=== PATIENT | female | born 1975 | race Caucasian/White ===

== ENCOUNTER 2021-07-07 12:00 | Inpatient (IN) | payer OTHER ==
[2021-07-07] MEDS ORDERED: NICOTINE 10 MG CARTRIDGE (INHALER) IH PRN ×2 (13:17→13:24)
[2021-07-07] MEDS ORDERED: MAG HYDROX/AL HYDROX/SIMETH 30 ML UNIT-DOSE CUP PO PRN ×2 (13:17→13:24)
[2021-07-07] MEDS ORDERED: ACETAMINOPHEN 325 MG TABLET (FP) PO PRN ×2 (13:17→13:24)
[2021-07-07] MEDS ORDERED: BISMUTH SUBSALICYLATE 524 MG/30 ML PO PRN (13:17)
[2021-07-07] MEDS ORDERED: MENTHOL/PHENOL 1 EACH UD MM PRN (13:17)
[2021-07-07] MEDS ORDERED: MAGNESIUM HYDROX 2400MG/30ML ORAL SUSPENSION 30 ML CUP PO PRN ×2 (13:17→13:24)
[2021-07-07] MEDS ORDERED: MAGNESIUM CITRATE 300 ML BOTTLE PO PRN ×2 (13:17→13:24)
[2021-07-07] MEDS ORDERED: IBUPROFEN 400 MG TABLET (FP) PO PRN ×2 (13:17→13:24)
[2021-07-07] MEDS ORDERED: ONDANSETRON *ODT* 4 MG TABLET SL PRN (13:17)
[2021-07-07] MEDS ORDERED: P-EPHED 60MG/TRIPROLIDI 2.5MG TABLET PO PRN (13:24)
[2021-07-07] MEDS ORDERED: LOPERAMIDE HCL 2 MG CAPSULE PO PRN (13:24)
[2021-07-07] MEDS ORDERED: guaiFENesin 200 MG/10 ML 10 ML UNIT-DOSE CUPS PO PRN (13:24)
[2021-07-07] MEDS ORDERED: hydrOXYzine PAMOATE 25 MG CAPSULE (FP) PO SCH (14:00)
[2021-07-07] MEDS ORDERED: ALBUTEROL SO4 2.5/IPRATROPIUM 0.5 INH SOL 3 ML VIAL.NEB. NEB ONE ×2 (14:00→14:09)
[2021-07-07] MEDS ORDERED: ALBUTEROL SO4 HFA INHALER IH ONE (14:13)
[2021-07-07 15:44] VITALS: BMI 61.9
[2021-07-07] MEDS ORDERED: MELATONIN 5 MG TABLETS PO SCH ×2 (22:00)
[2021-07-07] MEDS ORDERED: THIAMINE HCL 100 MG TABLET (FP) PO SCH (22:00)
[2021-07-07] MEDS: THIAMINE HCL 100 MG TABLET (FP) PO SCH (22:21)
[2021-07-07] MEDS: hydrOXYzine PAMOATE 25 MG CAPSULE (FP) PO SCH ×3 (22:22→22:46)
[2021-07-08] MEDS: hydrOXYzine PAMOATE 25 MG CAPSULE (FP) PO SCH ×5 (01:18→17:12)
[2021-07-08] MEDS ORDERED: PRENATAL VITAMINS W/ FOLIC ACID TABLET (FP) PO SCH (10:00)
[2021-07-08 10:11] LABS: HEMATOCRIT 35.6 % (32.4-45.2); HEMOGLOBIN 11.3 GM/dL (10.7-15.3); MCH 25.9 pg (25.7-33.7); MCHC 31.8 g/dl (32.0-36.0); MEAN CELL VOLUME 81.4 fl (80-96); MEAN PLT VOLUME 8.8 fl (7.5-11.1); PLATELET COUNT 259 10^3/uL (134-434); RBC 4.38 M/mm3 (3.60-5.2); RDW 13.9 % (11.6-15.6); WHITE BLOOD COUNT 8.2 K/mm3 (4.0-10.0)
[2021-07-08 10:12] LABS: ALBUMIN 3.3 g/dl (3.4-5.0); BLOOD UREA NITROGEN 20.2 mg/dL (7-18)
[2021-07-08 10:18] LABS: BILIRUBIN,TOTAL 0.6 mg/dL (0.2-1); TOT PROT 6.5 g/dl (6.4-8.2)
[2021-07-08] MEDS: PRENATAL VITAMINS W/ FOLIC ACID TABLET (FP) PO SCH (10:56)
[2021-07-08] MEDS: NICOTINE 7 MG/24 HOURS TOPICAL PATCH TD SCH (10:56)
[2021-07-08] MEDS: ALBUTEROL SO4 HFA INHALER IH PRN ×2 (10:58→19:06)
[2021-07-08] MEDS ORDERED: SENNOSIDES 8.6MG TABLET (FP) PO PRN (11:53)
[2021-07-08] MEDS ORDERED: LEVOTHYROXINE NA 200 MCG TABLET PO SCH (12:00)
[2021-07-08] MEDS: HYDROCHLOROTHIAZIDE 25 MG TABLET (FP) PO SCH (13:43)
[2021-07-08] MEDS: metFORMIN HCL 500 MG TABLET (FP) PO SCH ×2 (13:43→17:06)
[2021-07-08] MEDS: MONTELUKAST NA 10 MG TABLET PO SCH (13:43)
[2021-07-08] MEDS: NAPROXEN 500 MG TABLET PO SCH ×2 (13:43→21:35)
[2021-07-08] MEDS: PANTOPRAZOLE 40 MG TABLET PO SCH (13:43)
[2021-07-08] MEDS: LEVOTHYROXINE NA 100 MCG TABLET (FP) PO SCH (13:44)
[2021-07-08] MEDS: NIFEdipine E.R. 90 MG TABLET PO SCH (13:44)
[2021-07-08] MEDS: ACETAMINOPHEN 325 MG TABLET (FP) PO PRN (17:13)
[2021-07-08] MEDS: TIOTROPIUM BROMIDE 2.5 MCG (SPIRIVA) RESPIMAT INHALER IH SCH (17:49)
[2021-07-08] MEDS: MAG HYDROX/ALH/SMC/DPHA/LIDO 240 ML MOUTHWASH MM SCH ×2 (21:33→23:05)
[2021-07-08] MEDS: THIAMINE HCL 100 MG TABLET (FP) PO SCH (21:35)
[2021-07-08] MEDS: busPIRone HCL 10 MG TABLET (FP) PO SCH (21:35)
[2021-07-08] MEDS: MELATONIN 5 MG TABLETS PO SCH (21:36)
[2021-07-09] MEDS: ACETAMINOPHEN 325 MG TABLET (FP) PO PRN ×2 (01:01→16:42)
[2021-07-09] MEDS: ALBUTEROL SO4 HFA INHALER IH PRN ×3 (06:39→21:21)
[2021-07-09] MEDS: hydrOXYzine PAMOATE 25 MG CAPSULE (FP) PO PRN ×2 (06:45→16:43)
[2021-07-09] MEDS: metFORMIN HCL 500 MG TABLET (FP) PO SCH ×2 (06:46→16:42)
[2021-07-09] MEDS: MAG HYDROX/ALH/SMC/DPHA/LIDO 240 ML MOUTHWASH MM SCH ×3 (08:23→23:15)
[2021-07-09] MEDS: LEVOTHYROXINE NA 100 MCG TABLET (FP) PO SCH (08:27)
[2021-07-09] MEDS: busPIRone HCL 10 MG TABLET (FP) PO SCH ×2 (10:02→21:22)
[2021-07-09] MEDS: NAPROXEN 500 MG TABLET PO SCH ×2 (10:02→21:22)
[2021-07-09] MEDS: MONTELUKAST NA 10 MG TABLET PO SCH (10:02)
[2021-07-09] MEDS: PANTOPRAZOLE 40 MG TABLET PO SCH (10:02)
[2021-07-09] MEDS: PRENATAL VITAMINS W/ FOLIC ACID TABLET (FP) PO SCH (10:02)
[2021-07-09] MEDS: HYDROCHLOROTHIAZIDE 25 MG TABLET (FP) PO SCH (10:03)
[2021-07-09] MEDS: NICOTINE 7 MG/24 HOURS TOPICAL PATCH TD SCH (10:04)
[2021-07-09] MEDS: NIFEdipine E.R. 90 MG TABLET PO SCH (10:04)
[2021-07-09] MEDS: TIOTROPIUM BROMIDE 2.5 MCG (SPIRIVA) RESPIMAT INHALER IH SCH (10:05)
[2021-07-09] MEDS: FAMOTIDINE 20 MG TABLET PO SCH (14:56)
[2021-07-09] MEDS: METHOCARBAMOL 500 MG TABLET PO PRN (17:27)
[2021-07-09] MEDS: THIAMINE HCL 100 MG TABLET (FP) PO SCH (21:22)
[2021-07-09] MEDS: MELATONIN 5 MG TABLETS PO SCH (21:22)
[2021-07-10] MEDS: MAG HYDROX/ALH/SMC/DPHA/LIDO 240 ML MOUTHWASH MM SCH ×4 (00:24→18:16)
[2021-07-10] MEDS: hydrOXYzine PAMOATE 25 MG CAPSULE (FP) PO PRN ×2 (01:48→09:08)
[2021-07-10] MEDS: ALBUTEROL SO4 HFA INHALER IH PRN ×2 (01:51→12:58)
[2021-07-10] MEDS: metFORMIN HCL 500 MG TABLET (FP) PO SCH ×2 (06:37→18:13)
[2021-07-10] MEDS: LEVOTHYROXINE NA 100 MCG TABLET (FP) PO SCH (06:37)
[2021-07-10] MEDS: PRENATAL VITAMINS W/ FOLIC ACID TABLET (FP) PO SCH (09:06)
[2021-07-10] MEDS: HYDROCHLOROTHIAZIDE 25 MG TABLET (FP) PO SCH (09:06)
[2021-07-10] MEDS: METHOCARBAMOL 500 MG TABLET PO PRN (09:06)
[2021-07-10] MEDS: NAPROXEN 500 MG TABLET PO SCH ×2 (09:06→22:35)
[2021-07-10] MEDS: NIFEdipine E.R. 90 MG TABLET PO SCH (09:06)
[2021-07-10] MEDS: busPIRone HCL 10 MG TABLET (FP) PO SCH ×2 (09:06→22:35)
[2021-07-10] MEDS: PANTOPRAZOLE 40 MG TABLET PO SCH (09:06)
[2021-07-10] MEDS: MONTELUKAST NA 10 MG TABLET PO SCH (09:06)
[2021-07-10] MEDS: NICOTINE 7 MG/24 HOURS TOPICAL PATCH TD SCH (09:07)
[2021-07-10] MEDS: TIOTROPIUM BROMIDE 2.5 MCG (SPIRIVA) RESPIMAT INHALER IH SCH (09:07)
[2021-07-10 12:17] VITALS: TEMP 97.3
[2021-07-10] MEDS: FAMOTIDINE 20 MG TABLET PO SCH (13:34)
[2021-07-10 15:10] VITALS: BP 125/74; PULSE 82
[2021-07-10] MEDS: MELATONIN 5 MG TABLETS PO SCH (22:35)
[2021-07-10] MEDS: THIAMINE HCL 100 MG TABLET (FP) PO SCH (22:36)
[2021-07-11] MEDS: metFORMIN HCL 500 MG TABLET (FP) PO SCH (06:39)
[2021-07-11] MEDS: MAG HYDROX/ALH/SMC/DPHA/LIDO 240 ML MOUTHWASH MM SCH ×2 (06:39→07:56)
[2021-07-11] MEDS: LEVOTHYROXINE NA 100 MCG TABLET (FP) PO SCH (07:56)
== END 2021-07-11 08:00 | disposition short-term general hospital (02) | DRG 895 ==
LOC: YASAS 12:00 → Y5N 19:39
PROVIDERS: ADMIT Allergy & Immunology; ATTEND Allergy & Immunology
PROC: HZ42ZZZ Group Counseling for Substance Abuse Treatment, Cognitive-Behavioral (ICD-10-PCS; principal; 2021-07-07)
DX: F14.20 Cocaine dependence, uncomplicated (principal); F11.20 Opioid dependence, uncomplicated; F19.282 Other psychoactive substance dependence with psychoactive substance-induced sleep disorder; F19.280 Other psychoactive substance dependence with psychoactive substance-induced anxiety disorder; J44.1 Chronic obstructive pulmonary disease with (acute) exacerbation; Z68.44 Body mass index [BMI] 60.0-69.9, adult; F19.24 Other psychoactive substance dependence with psychoactive substance-induced mood disorder; I10 Essential (primary) hypertension; E11.9 Type 2 diabetes mellitus without complications; E03.9 Hypothyroidism, unspecified; R60.0 Localized edema; E66.01 Morbid (severe) obesity due to excess calories; Z62.810 Personal history of physical and sexual abuse in childhood; Z56.0 Unemployment, unspecified; Z59.00 Homelessness unspecified
CPT/HCPCS: 36415; 80053; 81025; 82962; 84443; 85027; 86780; 86803; C9803; U0003; U0005

== ENCOUNTER 2021-07-10 14:25 | Inpatient (IN) | payer OTHER ==
[2021-07-10] MEDS ORDERED: ALBUTEROL SO4 2.5/IPRATROPIUM 0.5 INH SOL 3 ML VIAL.NEB. NEB SCH (16:15)
[2021-07-10] MEDS ORDERED: ALBUTEROL SO4 2.5/IPRATROPIUM 0.5 INH SOL 3 ML VIAL.NEB. NEB ONE (16:25)
[2021-07-10] MEDS ORDERED: ALBUTEROL SO4 HFA INHALER IH ONE ×2 (16:53→17:17)
[2021-07-10 17:05] LABS: BASO % 1.5 % (0-2.0); EOS % 8.6 % (0-4.5); HEMATOCRIT 37.8 % (32.4-45.2); HEMOGLOBIN 11.5 GM/dL (10.7-15.3); MCH 24.8 pg (25.7-33.7); MCHC 30.5 g/dl (32.0-36.0); MEAN CELL VOLUME 81.5 fl (80-96); MEAN PLT VOLUME 8.8 fl (7.5-11.1); MONO % 8.2 % (3.8-10.2); NEUT % 60.7 % (42.8-82.8); PLATELET COUNT 279 10^3/uL (134-434); RBC 4.64 M/mm3 (3.60-5.2); WHITE BLOOD COUNT 8.1 K/mm3 (4.0-10.0)
[2021-07-10 17:24] LABS: CHLORIDE 102 mmol/L (98-107); SODIUM 140 mmol/L (136-145)
[2021-07-10 17:27] LABS: ALBUMIN 3.4 g/dl (3.4-5.0); ANION GAP 8 MMOL/L (8-16); BLOOD UREA NITROGEN 16.2 mg/dL (7-18); CO2 31 mmol/L (21-32); GLUCOSE,RANDOM 127 mg/dL (74-106); MAGNESIUM 2.5 mg/dL (1.8-2.4)
[2021-07-10 17:30] LABS: CREATININE 0.9 mg/dL (0.55-1.3); SGOT/AST 18 U/L (15-37); SGPT/ALT 26 U/L (13-61)
[2021-07-10 17:31] LABS: BILIRUBIN,TOTAL 0.2 mg/dL (0.2-1); TOT PROT 6.7 g/dl (6.4-8.2)
[2021-07-10 17:33] LABS: ALK PHOS 95 U/L (45-117)
[2021-07-10 17:35] LABS: N-TERMINAL BNP 110.5 pg/ml (5-125)
[2021-07-10] MEDS ORDERED: ACETAMINOPHEN 1000 MG/100 ML BAG IVPB ONE (23:39)
[2021-07-10 23:54] LABS: URINE APPEARANCE CLEAR; URINE BILIRUBIN NEGATIVE (NEGATIVE); URINE COLOR YELLOW; URINE GLUCOSE (UA) NEGATIVE (NEGATIVE); URINE KETONE NEGATIVE (NEGATIVE); URINE LEUK ESTERASE NEGATIVE (NEGATIVE); URINE NITRITE NEGATIVE (NEGATIVE); URINE PROTEIN NEGATIVE (NEGATIVE); URINE UROBILINOGEN 0.2 mg/dL (0.2-1.0)
[2021-07-11] MEDS ORDERED: ACETAMINOPHEN INJECTION 100 ML IVPB ONE (00:14)
[2021-07-11 01:51] LABS: HIV INTERPRETATION NEGATIVE (NEGATIVE)
[2021-07-11] MEDS ORDERED: ACETAMINOPHEN 1000 MG/100 ML BAG IVPB PRN ×2 (02:02→16:44)
[2021-07-11] MEDS ORDERED: diazePAM 2 MG TABLET PO ONE (04:19)
[2021-07-11] MEDS ORDERED: MAG HYDROX/ALH/SMC/DPHA/LIDO 240 ML MOUTHWASH MM SCH (06:00)
[2021-07-11] MEDS: MAG HYDROX/ALH/SMC/DPHA/LIDO 240 ML MOUTHWASH MM SCH ×3 (06:44→17:48)
[2021-07-11] MEDS: INSULIN SLIDING SCALE (NOVOLOG) 1 VIAL SQ SCH ×4 (06:45→22:10)
[2021-07-11] MEDS: LEVOTHYROXINE NA 200 MCG TABLET PO SCH (06:46)
[2021-07-11 07:34] LABS: BASO % 1.4 % (0-2.0); EOS % 7.7 % (0-4.5); HEMATOCRIT 34.9 % (32.4-45.2); LYMPH % 19.7 % (8-40); MCH 25.2 pg (25.7-33.7); MCHC 31.5 g/dl (32.0-36.0); MEAN CELL VOLUME 79.9 fl (80-96); MEAN PLT VOLUME 8.6 fl (7.5-11.1); MONO % 6.2 % (3.8-10.2); PLATELET COUNT 244 10^3/uL (134-434); RBC 4.37 M/mm3 (3.60-5.2); RDW 14.2 % (11.6-15.6); WHITE BLOOD COUNT 6.6 K/mm3 (4.0-10.0)
[2021-07-11 07:44] LABS: BLOOD UREA NITROGEN 13.9 mg/dL (7-18); CALCIUM 8.9 mg/dL (8.5-10.1); MAGNESIUM 2.4 mg/dL (1.8-2.4)
[2021-07-11 07:47] LABS: CREATININE 0.8 mg/dL (0.55-1.3)
[2021-07-11 07:49] LABS: BILIRUBIN,TOTAL 0.3 mg/dL (0.2-1); TOT PROT 6.4 g/dl (6.4-8.2)
[2021-07-11] MEDS: NAPROXEN 500 MG TABLET PO SCH ×2 (07:50→09:38)
[2021-07-11] MEDS: LEVALBUTEROL HCL 0.31 MG/3 ML VIAL.NEB IH PRN ×2 (07:55→16:05)
[2021-07-11] MEDS: THIAMINE HCL 200 MG/2 ML VIAL IVPB SCH (09:36)
[2021-07-11] MEDS: methylPREDNISolone NA SUCC 40 MG/1 ML VIAL IVPUSH SCH (09:37)
[2021-07-11] MEDS: FOLIC ACID 1 MG TABLET (FP) PO SCH (09:37)
[2021-07-11] MEDS: ENOXAPARIN NA (PORCINE) 40 MG/0.4 ML DISP.SYRIN SQ SCH ×2 (09:37→21:51)
[2021-07-11] MEDS: CYANOCOBALAMIN (VITAMIN B-12) 100 MCG TABLET PO SCH (09:38)
[2021-07-11] MEDS: amLODIPine BESYLATE 5 MG TABLET (FP) PO SCH (17:41)
[2021-07-11] MEDS: NYSTATIN 500,000 UNITS/5 ML SUSPENSION PO SCH ×2 (17:49→23:27)
[2021-07-11] MEDS ORDERED: diphenhydrAMINE HCL 25 MG CAPSULE (FP) PO PRN (21:00)
[2021-07-11] MEDS ORDERED: MELATONIN 5 MG TABLETS PO PRN (23:19)
[2021-07-12] MEDS ORDERED: hydrOXYzine HCL 10 MG/5 ML LIQUID BULK BOTTLE PO ONE (00:28)
[2021-07-12] MEDS ORDERED: amLODIPine BESYLATE 5 MG TABLET (FP) PO ONE (00:56)
[2021-07-12] MEDS: MAG HYDROX/ALH/SMC/DPHA/LIDO 240 ML MOUTHWASH MM SCH ×4 (01:17→18:22)
[2021-07-12] MEDS: busPIRone HCL 10 MG TABLET (FP) PO SCH ×3 (05:41→22:35)
[2021-07-12] MEDS: LEVOTHYROXINE NA 200 MCG TABLET PO SCH (06:09)
[2021-07-12] MEDS: NYSTATIN 500,000 UNITS/5 ML SUSPENSION PO SCH ×3 (06:09→18:22)
[2021-07-12] MEDS: INSULIN SLIDING SCALE (NOVOLOG) 1 VIAL SQ SCH ×4 (06:10→22:36)
[2021-07-12 08:41] LABS: HEMATOCRIT 35.2 % (32.4-45.2); HEMOGLOBIN 11.1 GM/dL (10.7-15.3); MCH 25.4 pg (25.7-33.7); MCHC 31.6 g/dl (32.0-36.0); MEAN CELL VOLUME 80.4 fl (80-96); MEAN PLT VOLUME 8.7 fl (7.5-11.1); PLATELET COUNT 255 10^3/uL (134-434); RBC 4.38 M/mm3 (3.60-5.2); RDW 14.1 % (11.6-15.6); WHITE BLOOD COUNT 7.1 K/mm3 (4.0-10.0)
[2021-07-12 09:10] LABS: ALBUMIN 3.3 g/dl (3.4-5.0); CALCIUM 9.1 mg/dL (8.5-10.1)
[2021-07-12 09:11] LABS: BLOOD UREA NITROGEN 16.5 mg/dL (7-18); MAGNESIUM 2.9 mg/dL (1.8-2.4)
[2021-07-12 09:13] LABS: CREATININE 0.9 mg/dL (0.55-1.3)
[2021-07-12 09:15] LABS: BILIRUBIN,TOTAL 0.6 mg/dL (0.2-1); TOT PROT 6.6 g/dl (6.4-8.2)
[2021-07-12] MEDS ORDERED: hydrOXYzine PAMOATE 50 MG CAPSULE (FP) PO PRN (09:35)
[2021-07-12] MEDS ORDERED: SODIUM CHLORIDE FOR INHALATION 3 ML VIAL.NEB IH PRN (09:45)
[2021-07-12] MEDS ORDERED: ACETAMINOPHEN 325 MG TABLET (FP) PO PRN ×2 (09:47→09:57)
[2021-07-12] MEDS: amLODIPine BESYLATE 5 MG TABLET (FP) PO SCH (10:44)
[2021-07-12] MEDS: FOLIC ACID 1 MG TABLET (FP) PO SCH (10:45)
[2021-07-12] MEDS: NIFEdipine E.R 60 MG TABLET PO SCH (10:45)
[2021-07-12] MEDS: CYANOCOBALAMIN (VITAMIN B-12) 100 MCG TABLET PO SCH (10:46)
[2021-07-12] MEDS: ENOXAPARIN NA (PORCINE) 40 MG/0.4 ML DISP.SYRIN SQ SCH ×2 (10:46→22:34)
[2021-07-12] MEDS: methylPREDNISolone NA SUCC 40 MG/1 ML VIAL IVPUSH SCH (10:47)
[2021-07-12] MEDS: THIAMINE HCL 200 MG/2 ML VIAL IVPB SCH (10:51)
[2021-07-12] MEDS ORDERED: SENNOSIDES 8.6MG TABLET (FP) PO PRN (13:54)
[2021-07-12] MEDS ORDERED: hydrOXYzine PAMOATE 25 MG CAPSULE (FP) PO ONE (15:14)
[2021-07-12] MEDS: hydrOXYzine PAMOATE 25 MG CAPSULE (FP) PO PRN (15:33)
[2021-07-12] MEDS: ACETAMINOPHEN 325 MG TABLET (FP) PO PRN ×2 (15:33→22:40)
[2021-07-12] MEDS ORDERED: PT OWN MED DRAWER 7, Y5N ONE (22:28)
[2021-07-12] MEDS: MELATONIN 5 MG TABLETS PO PRN (22:34)
[2021-07-12] MEDS: MONTELUKAST NA 10 MG TABLET PO SCH (22:35)
[2021-07-12] MEDS: DOCUSATE SODIUM 100 MG CAPSULE (FP) PO SCH (22:36)
[2021-07-12] MEDS: BUDESONIDE/FORMETEROL FUMARATE 160/4.5 mcg INHALER IH SCH (22:45)
[2021-07-13] MEDS: hydrOXYzine PAMOATE 25 MG CAPSULE (FP) PO PRN ×3 (00:19→17:38)
[2021-07-13] MEDS: NYSTATIN 500,000 UNITS/5 ML SUSPENSION PO SCH ×4 (02:14→17:44)
[2021-07-13] MEDS: MAG HYDROX/ALH/SMC/DPHA/LIDO 240 ML MOUTHWASH MM SCH ×4 (02:14→17:44)
[2021-07-13] MEDS ORDERED: DICLOFENAC SODIUM 25 MG TABLET.DR PO ONE (02:30)
[2021-07-13] MEDS: LEVALBUTEROL HCL 0.31 MG/3 ML VIAL.NEB IH PRN ×2 (05:52→21:38)
[2021-07-13] MEDS: LEVOTHYROXINE NA 200 MCG TABLET PO SCH (07:17)
[2021-07-13] MEDS: INSULIN SLIDING SCALE (NOVOLOG) 1 VIAL SQ SCH ×4 (07:17→22:18)
[2021-07-13] MEDS ORDERED: PT OWN MED DRAWER 7, Y5N ONE ×3 (07:21→17:37)
[2021-07-13] MEDS: ACETAMINOPHEN 325 MG TABLET (FP) PO PRN ×2 (08:31→14:38)
[2021-07-13] MEDS ORDERED: predniSONE 20 MG TABLET (UD) PO SCH (10:00)
[2021-07-13] MEDS: HYDROCHLOROTHIAZIDE 25 MG TABLET (FP) PO SCH (11:04)
[2021-07-13] MEDS: CYANOCOBALAMIN (VITAMIN B-12) 100 MCG TABLET PO SCH (11:04)
[2021-07-13] MEDS: busPIRone HCL 10 MG TABLET (FP) PO SCH ×2 (11:04→22:12)
[2021-07-13] MEDS: BUDESONIDE/FORMETEROL FUMARATE 160/4.5 mcg INHALER IH SCH ×2 (11:04→22:12)
[2021-07-13] MEDS: TIOTROPIUM BROMIDE 2.5 MCG (SPIRIVA) RESPIMAT INHALER IH SCH (11:05)
[2021-07-13] MEDS: DOCUSATE SODIUM 100 MG CAPSULE (FP) PO SCH ×2 (11:05→22:12)
[2021-07-13] MEDS: ENOXAPARIN NA (PORCINE) 40 MG/0.4 ML DISP.SYRIN SQ SCH ×2 (11:05→22:12)
[2021-07-13] MEDS: CHOLECALCIFEROL (VIT D3) 1,000 UNIT (25 MCG) TABLET PO SCH (11:05)
[2021-07-13] MEDS: PANTOPRAZOLE 40 MG TABLET PO SCH (11:05)
[2021-07-13] MEDS: FOLIC ACID 1 MG TABLET (FP) PO SCH (11:05)
[2021-07-13] MEDS: THIAMINE HCL 200 MG/2 ML VIAL IVPB SCH (11:06)
[2021-07-13] MEDS: NIFEdipine E.R 60 MG TABLET PO SCH (11:06)
[2021-07-13] MEDS ORDERED: INSULIN (NOVOLOG) ASPART 100 UNITS/ML 10ML VIAL ONE (17:53)
[2021-07-13] MEDS: MONTELUKAST NA 10 MG TABLET PO SCH (22:12)
[2021-07-13] MEDS: MELATONIN 5 MG TABLETS PO PRN (22:12)
[2021-07-14] MEDS: MAG HYDROX/ALH/SMC/DPHA/LIDO 240 ML MOUTHWASH MM SCH ×5 (00:27→23:20)
[2021-07-14] MEDS: NYSTATIN 500,000 UNITS/5 ML SUSPENSION PO SCH ×5 (00:27→23:21)
[2021-07-14] MEDS: SODIUM CHLORIDE NASAL SPRAY 44 ML BOTTLE NS PRN ×2 (02:24→17:36)
[2021-07-14] MEDS: ACETAMINOPHEN 325 MG TABLET (FP) PO PRN (05:18)
[2021-07-14] MEDS: LEVOTHYROXINE NA 200 MCG TABLET PO SCH (06:27)
[2021-07-14] MEDS: INSULIN SLIDING SCALE (NOVOLOG) 1 VIAL SQ SCH ×4 (06:32→23:05)
[2021-07-14 07:34] VITALS: BMI 63.9
[2021-07-14] MEDS ORDERED: predniSONE 20 MG TABLET (UD) PO SCH (07:44)
[2021-07-14] MEDS: CHOLECALCIFEROL (VIT D3) 1,000 UNIT (25 MCG) TABLET PO SCH (09:20)
[2021-07-14] MEDS: PANTOPRAZOLE 40 MG TABLET PO SCH (09:20)
[2021-07-14] MEDS: HYDROCHLOROTHIAZIDE 25 MG TABLET (FP) PO SCH (09:20)
[2021-07-14] MEDS: ENOXAPARIN NA (PORCINE) 40 MG/0.4 ML DISP.SYRIN SQ SCH ×2 (09:20→23:03)
[2021-07-14] MEDS: FOLIC ACID 1 MG TABLET (FP) PO SCH (09:21)
[2021-07-14] MEDS: busPIRone HCL 10 MG TABLET (FP) PO SCH ×2 (09:21→23:04)
[2021-07-14] MEDS: DOCUSATE SODIUM 100 MG CAPSULE (FP) PO SCH ×2 (09:21→23:06)
[2021-07-14] MEDS: NIFEdipine E.R 60 MG TABLET PO SCH (09:22)
[2021-07-14] MEDS: THIAMINE HCL 200 MG/2 ML VIAL IVPB SCH (09:22)
[2021-07-14] MEDS: CYANOCOBALAMIN (VITAMIN B-12) 100 MCG TABLET PO SCH (09:22)
[2021-07-14] MEDS: BUDESONIDE/FORMETEROL FUMARATE 160/4.5 mcg INHALER IH SCH ×2 (09:23→23:20)
[2021-07-14] MEDS: TIOTROPIUM BROMIDE 2.5 MCG (SPIRIVA) RESPIMAT INHALER IH SCH (09:23)
[2021-07-14] MEDS ORDERED: predniSONE 20 MG TABLET (UD) ONE (09:42)
[2021-07-14] MEDS ORDERED: predniSONE 10 MG TABLET (UD) ONE (09:42)
[2021-07-14] MEDS: hydrOXYzine PAMOATE 25 MG CAPSULE (FP) PO PRN ×2 (09:43→23:21)
[2021-07-14 09:51] LABS: HEMATOCRIT 35.1 % (32.4-45.2); HEMOGLOBIN 10.9 GM/dL (10.7-15.3); MEAN CELL VOLUME 80.6 fl (80-96); MEAN PLT VOLUME 8.7 fl (7.5-11.1); PLATELET COUNT 272 10^3/uL (134-434); RBC 4.35 M/mm3 (3.60-5.2); RDW 13.9 % (11.6-15.6); WHITE BLOOD COUNT 8.2 K/mm3 (4.0-10.0)
[2021-07-14] MEDS ORDERED: predniSONE 20 MG, predniSONE 10 MG PO ONE (10:00)
[2021-07-14 10:18] LABS: ALBUMIN 3.2 g/dl (3.4-5.0)
[2021-07-14 10:20] LABS: BLOOD UREA NITROGEN 18.7 mg/dL (7-18)
[2021-07-14 10:21] LABS: CREATININE 0.9 mg/dL (0.55-1.3)
[2021-07-14 10:22] LABS: BILIRUBIN,TOTAL 0.3 mg/dL (0.2-1); TOT PROT 6.7 g/dl (6.4-8.2)
[2021-07-14] MEDS: LEVALBUTEROL HCL 0.31 MG/3 ML VIAL.NEB IH PRN (11:50)
[2021-07-14] MEDS: ACETAMINOPHEN 1000 MG/100 ML BAG IVPB PRN ×2 (13:13→23:02)
[2021-07-14] MEDS: MAGNESIUM HYDROX 2400MG/30ML ORAL SUSPENSION 30 ML CUP PO PRN (14:37)
[2021-07-14] MEDS: MONTELUKAST NA 10 MG TABLET PO SCH (23:04)
[2021-07-14] MEDS: MELATONIN 5 MG TABLETS PO PRN (23:21)
[2021-07-15] MEDS: LEVALBUTEROL HCL 0.31 MG/3 ML VIAL.NEB IH PRN (03:15)
[2021-07-15] MEDS: NYSTATIN 500,000 UNITS/5 ML SUSPENSION PO SCH ×3 (07:29→18:19)
[2021-07-15] MEDS: MAG HYDROX/ALH/SMC/DPHA/LIDO 240 ML MOUTHWASH MM SCH ×3 (07:29→18:20)
[2021-07-15] MEDS: LEVOTHYROXINE NA 200 MCG TABLET PO SCH (07:30)
[2021-07-15] MEDS: ACETAMINOPHEN 325 MG TABLET (FP) PO PRN (07:30)
[2021-07-15] MEDS: INSULIN SLIDING SCALE (NOVOLOG) 1 VIAL SQ SCH ×4 (07:32→22:14)
[2021-07-15] MEDS ORDERED: PT OWN MED DRAWER 7, Y5N ONE ×3 (08:59→18:18)
[2021-07-15] MEDS: DOCUSATE SODIUM 100 MG CAPSULE (FP) PO SCH ×2 (09:03→22:08)
[2021-07-15] MEDS: CHOLECALCIFEROL (VIT D3) 1,000 UNIT (25 MCG) TABLET PO SCH (09:03)
[2021-07-15] MEDS: THIAMINE HCL 200 MG/2 ML VIAL IVPB SCH (09:03)
[2021-07-15] MEDS: busPIRone HCL 10 MG TABLET (FP) PO SCH ×2 (09:03→22:08)
[2021-07-15] MEDS: PANTOPRAZOLE 40 MG TABLET PO SCH (09:04)
[2021-07-15] MEDS: HYDROCHLOROTHIAZIDE 25 MG TABLET (FP) PO SCH (09:04)
[2021-07-15] MEDS: NIFEdipine E.R 60 MG TABLET PO SCH (09:04)
[2021-07-15] MEDS: ENOXAPARIN NA (PORCINE) 40 MG/0.4 ML DISP.SYRIN SQ SCH ×2 (09:04→22:08)
[2021-07-15] MEDS: FOLIC ACID 1 MG TABLET (FP) PO SCH (09:04)
[2021-07-15] MEDS: BUDESONIDE/FORMETEROL FUMARATE 160/4.5 mcg INHALER IH SCH ×2 (09:05→22:17)
[2021-07-15] MEDS: CYANOCOBALAMIN (VITAMIN B-12) 100 MCG TABLET PO SCH (09:05)
[2021-07-15] MEDS: TIOTROPIUM BROMIDE 2.5 MCG (SPIRIVA) RESPIMAT INHALER IH SCH (09:05)
[2021-07-15] MEDS: MAGNESIUM HYDROX 2400MG/30ML ORAL SUSPENSION 30 ML CUP PO PRN (09:39)
[2021-07-15] MEDS: hydrOXYzine PAMOATE 25 MG CAPSULE (FP) PO PRN ×2 (09:39→18:32)
[2021-07-15] MEDS ORDERED: predniSONE 20 MG TABLET (UD) PO ONE (10:00)
[2021-07-15 10:33] LABS: HEMATOCRIT 36.9 % (32.4-45.2); HEMOGLOBIN 11.4 GM/dL (10.7-15.3); MCH 25.1 pg (25.7-33.7); MEAN PLT VOLUME 8.8 fl (7.5-11.1); PLATELET COUNT 298 10^3/uL (134-434); RBC 4.55 M/mm3 (3.60-5.2); RDW 13.9 % (11.6-15.6); WHITE BLOOD COUNT 8.5 K/mm3 (4.0-10.0)
[2021-07-15 10:50] LABS: ALBUMIN 3.3 g/dl (3.4-5.0); CALCIUM 8.7 mg/dL (8.5-10.1)
[2021-07-15 10:51] LABS: BLOOD UREA NITROGEN 26.2 mg/dL (7-18)
[2021-07-15 10:53] LABS: CREATININE 0.9 mg/dL (0.55-1.3)
[2021-07-15 10:55] LABS: BILIRUBIN,TOTAL 0.4 mg/dL (0.2-1); TOT PROT 6.6 g/dl (6.4-8.2)
[2021-07-15] MEDS ORDERED: INSULIN (NOVOLOG) ASPART 100 UNITS/ML 10ML VIAL ONE (11:20)
[2021-07-15] MEDS: METHYL SALICYLATE/MENTHOL OINT 30 GM TUBE TP SCH (18:20)
[2021-07-15] MEDS: ACETAMINOPHEN 1000 MG/100 ML BAG IVPB PRN (18:24)
[2021-07-15] MEDS: MELATONIN 5 MG TABLETS PO PRN (22:07)
[2021-07-15] MEDS: MONTELUKAST NA 10 MG TABLET PO SCH (22:08)
[2021-07-16] MEDS: ACETAMINOPHEN 1000 MG/100 ML BAG IVPB PRN ×3 (00:35→16:35)
[2021-07-16] MEDS: LEVALBUTEROL HCL 0.31 MG/3 ML VIAL.NEB IH PRN (00:37)
[2021-07-16] MEDS: NYSTATIN 500,000 UNITS/5 ML SUSPENSION PO SCH ×3 (00:47→12:10)
[2021-07-16] MEDS: SODIUM CHLORIDE NASAL SPRAY 44 ML BOTTLE NS PRN (00:47)
[2021-07-16] MEDS: MAG HYDROX/ALH/SMC/DPHA/LIDO 240 ML MOUTHWASH MM SCH ×3 (00:48→12:10)
[2021-07-16] MEDS: LEVOTHYROXINE NA 200 MCG TABLET PO SCH (07:18)
[2021-07-16] MEDS: INSULIN SLIDING SCALE (NOVOLOG) 1 VIAL SQ SCH ×3 (07:23→16:38)
[2021-07-16 08:20] LABS: HEMATOCRIT 34.8 % (32.4-45.2); HEMOGLOBIN 11.4 GM/dL (10.7-15.3); MCHC 32.7 g/dl (32.0-36.0); MEAN CELL VOLUME 79.4 fl (80-96); MEAN PLT VOLUME 8.3 fl (7.5-11.1); PLATELET COUNT 268 10^3/uL (134-434); RBC 4.39 M/mm3 (3.60-5.2); RDW 14.3 % (11.6-15.6); WHITE BLOOD COUNT 8.2 K/mm3 (4.0-10.0)
[2021-07-16 09:10] LABS: CALCIUM 8.7 mg/dL (8.5-10.1)
[2021-07-16 09:11] LABS: ALBUMIN 3.2 g/dl (3.4-5.0); BLOOD UREA NITROGEN 28.5 mg/dL (7-18)
[2021-07-16] MEDS: CHOLECALCIFEROL (VIT D3) 1,000 UNIT (25 MCG) TABLET PO SCH (09:12)
[2021-07-16] MEDS: CYANOCOBALAMIN (VITAMIN B-12) 100 MCG TABLET PO SCH (09:12)
[2021-07-16] MEDS: ENOXAPARIN NA (PORCINE) 40 MG/0.4 ML DISP.SYRIN SQ SCH (09:12)
[2021-07-16] MEDS: PANTOPRAZOLE 40 MG TABLET PO SCH (09:12)
[2021-07-16] MEDS: busPIRone HCL 10 MG TABLET (FP) PO SCH (09:13)
[2021-07-16 09:14] LABS: CREATININE 0.9 mg/dL (0.55-1.3)
[2021-07-16] MEDS: THIAMINE HCL 200 MG/2 ML VIAL IVPB SCH (09:14)
[2021-07-16 09:16] LABS: BILIRUBIN,TOTAL 0.3 mg/dL (0.2-1); TOT PROT 6.6 g/dl (6.4-8.2)
[2021-07-16] MEDS: METHYL SALICYLATE/MENTHOL OINT 30 GM TUBE TP SCH (09:23)
[2021-07-16] MEDS: NIFEdipine E.R 60 MG TABLET PO SCH (09:24)
[2021-07-16] MEDS: DOCUSATE SODIUM 100 MG CAPSULE (FP) PO SCH (09:24)
[2021-07-16] MEDS: FOLIC ACID 1 MG TABLET (FP) PO SCH (09:24)
[2021-07-16] MEDS: TIOTROPIUM BROMIDE 2.5 MCG (SPIRIVA) RESPIMAT INHALER IH SCH (09:24)
[2021-07-16] MEDS: HYDROCHLOROTHIAZIDE 25 MG TABLET (FP) PO SCH (09:24)
[2021-07-16] MEDS: BUDESONIDE/FORMETEROL FUMARATE 160/4.5 mcg INHALER IH SCH (09:24)
[2021-07-16] MEDS: hydrOXYzine PAMOATE 25 MG CAPSULE (FP) PO PRN ×2 (09:33→16:35)
[2021-07-16 09:46] VITALS: BP 119/64; TEMP 97.7
[2021-07-16] MEDS ORDERED: predniSONE 10 MG TABLET (UD) PO ONE (10:00)
[2021-07-16] MEDS ORDERED: FAMOTIDINE 20 MG TABLET PO SCH (14:00)
[2021-07-16 14:35] VITALS: PULSE 102
[2021-07-17] MEDS ORDERED: predniSONE 5 MG TABLET (UD) PO ONE (10:00)
[2021-07-18] MEDS ORDERED: predniSONE 5 MG TABLET (UD) PO ONE (10:00)
== END 2021-07-16 19:50 | disposition other institution (70) | DRG 206 ==
LOC: JER 14:25 → JERBED 22:43 → J7W 07-11 03:30
PROVIDERS: ADMIT Internal Medicine; ATTEND Internal Medicine
DX: E66.2 Morbid (severe) obesity with alveolar hypoventilation (principal); Z68.44 Body mass index [BMI] 60.0-69.9, adult; I10 Essential (primary) hypertension; E11.9 Type 2 diabetes mellitus without complications; E03.9 Hypothyroidism, unspecified; F31.9 Bipolar disorder, unspecified; F14.10 Cocaine abuse, uncomplicated; K13.70 Unspecified lesions of oral mucosa; F10.10 Alcohol abuse, uncomplicated; K21.9 Gastro-esophageal reflux disease without esophagitis; J44.9 Chronic obstructive pulmonary disease, unspecified; F41.9 Anxiety disorder, unspecified; K44.9 Diaphragmatic hernia without obstruction or gangrene; J84.10 Pulmonary fibrosis, unspecified; R94.31 Abnormal electrocardiogram [ECG] [EKG]; S93.402A Sprain of unspecified ligament of left ankle, initial encounter; X58.XXXA Exposure to other specified factors, initial encounter; Y92.9 Unspecified place or not applicable; Z59.00 Homelessness unspecified; Z99.89 Dependence on other enabling machines and devices
CPT/HCPCS: 36415; 71045-TC-FY; 71275-TC; 73610-TC-LT-FY; 80053; 80061; 81003; 82180; 82607; 82746; 82962; 83540; 83735; 83880; 84100; 84439; 84443; 84484; 84591; 85025; 85027; 85379; 86780; 87070; 87086; 87389; 87491; 87529; 87591; 87661; 93005; 93010; 93306-TC; 93970-TC; 94660; 94761; 97116-GP; 97161-GP; 99285-25; C9803-CS; Q9967; U0003; U0005

== ENCOUNTER 2021-07-16 19:31 | Inpatient (IN) | payer OTHER ==
[2021-07-16] MEDS ORDERED: MAGNESIUM HYDROX 2400MG/30ML ORAL SUSPENSION 30 ML CUP PO PRN (20:51)
[2021-07-16] MEDS ORDERED: MENTHOL/PHENOL 1 EACH UD MM PRN (20:51)
[2021-07-16] MEDS ORDERED: guaiFENesin 200 MG/10 ML 10 ML UNIT-DOSE CUPS PO PRN (20:51)
[2021-07-16] MEDS ORDERED: MAGNESIUM CITRATE 300 ML BOTTLE PO PRN (20:51)
[2021-07-16] MEDS ORDERED: LOPERAMIDE HCL 2 MG CAPSULE PO PRN (20:51)
[2021-07-16] MEDS ORDERED: P-EPHED 60MG/TRIPROLIDI 2.5MG TABLET PO PRN (20:51)
[2021-07-16] MEDS ORDERED: MAG HYDROX/AL HYDROX/SIMETH 30 ML UNIT-DOSE CUP PO PRN (20:51)
[2021-07-16] MEDS ORDERED: busPIRone HCL 5 MG TABLET PO ONE (22:00)
[2021-07-16] MEDS ORDERED: busPIRone HCL 10 MG TABLET (FP) PO ONE (22:15)
[2021-07-16 22:17] VITALS: BMI 63.8
[2021-07-16] MEDS: MELATONIN 5 MG TABLETS PO SCH (22:46)
[2021-07-16] MEDS: DOCUSATE SODIUM 100 MG CAPSULE (FP) PO SCH (22:48)
[2021-07-16] MEDS: THIAMINE HCL 100 MG TABLET (FP) PO SCH (22:48)
[2021-07-16] MEDS: BUDESONIDE/FORMETEROL FUMARATE 160/4.5 mcg INHALER IH SCH (23:11)
[2021-07-16] MEDS: METHYL SALICYLATE/MENTHOL OINT 30 GM TUBE TP SCH (23:12)
[2021-07-17] MEDS: NYSTATIN 500,000 UNITS/5 ML SUSPENSION PO SCH ×4 (01:02→17:11)
[2021-07-17] MEDS: MAG HYDROX/ALH/SMC/DPHA/LIDO 240 ML MOUTHWASH MM SCH ×4 (01:02→17:10)
[2021-07-17] MEDS: hydrOXYzine PAMOATE 25 MG CAPSULE (FP) PO PRN ×2 (02:31→19:20)
[2021-07-17] MEDS: metFORMIN HCL 500 MG TABLET (FP) PO SCH ×2 (06:54→17:06)
[2021-07-17] MEDS: LEVOTHYROXINE NA 200 MCG TABLET PO SCH (06:54)
[2021-07-17] MEDS ORDERED: PT OWN MED DRAWER 7, Y5N ONE ×4 (07:05→16:54)
[2021-07-17] MEDS: CHOLECALCIFEROL (VIT D3) 1,000 UNIT (25 MCG) TABLET PO SCH (09:53)
[2021-07-17] MEDS: DOCUSATE SODIUM 100 MG CAPSULE (FP) PO SCH ×2 (09:53→21:35)
[2021-07-17] MEDS: BUDESONIDE/FORMETEROL FUMARATE 160/4.5 mcg INHALER IH SCH ×2 (09:53→21:36)
[2021-07-17] MEDS: PRENATAL VITAMINS W/ FOLIC ACID TABLET (FP) PO SCH (09:53)
[2021-07-17] MEDS: HYDROCHLOROTHIAZIDE 25 MG TABLET (FP) PO SCH (09:53)
[2021-07-17] MEDS: FOLIC ACID 1 MG TABLET (FP) PO SCH (09:53)
[2021-07-17] MEDS: PANTOPRAZOLE 40 MG TABLET PO SCH (09:53)
[2021-07-17] MEDS: predniSONE 5 MG TABLET (UD) PO SCH (09:54)
[2021-07-17] MEDS: TIOTROPIUM BROMIDE 2.5 MCG (SPIRIVA) RESPIMAT INHALER IH SCH (09:58)
[2021-07-17] MEDS: METHYL SALICYLATE/MENTHOL OINT 30 GM TUBE TP SCH ×2 (13:48→21:39)
[2021-07-17] MEDS ORDERED: SUMAtriptan SUCCINATE 25 MG TABLET PO ONE (13:48)
[2021-07-17] MEDS: NIFEdipine E.R. 90 MG TABLET PO SCH (13:51)
[2021-07-17] MEDS: CYANOCOBALAMIN (VITAMIN B-12) 100 MCG TABLET PO SCH (14:04)
[2021-07-17] MEDS: MELATONIN 5 MG TABLETS PO SCH (21:35)
[2021-07-17] MEDS: THIAMINE HCL 100 MG TABLET (FP) PO SCH (21:36)
[2021-07-17] MEDS: MONTELUKAST NA 10 MG TABLET PO SCH (21:38)
[2021-07-18] MEDS: MAG HYDROX/ALH/SMC/DPHA/LIDO 240 ML MOUTHWASH MM SCH ×4 (00:47→17:47)
[2021-07-18] MEDS: NYSTATIN 500,000 UNITS/5 ML SUSPENSION PO SCH ×4 (00:47→17:47)
[2021-07-18] MEDS: hydrOXYzine PAMOATE 25 MG CAPSULE (FP) PO PRN ×5 (02:27→23:16)
[2021-07-18] MEDS: ACETAMINOPHEN 325 MG TABLET (FP) PO PRN ×3 (02:28→16:46)
[2021-07-18] MEDS ORDERED: PT OWN MED DRAWER 7, Y5N ONE ×4 (03:19→17:43)
[2021-07-18] MEDS: metFORMIN HCL 500 MG TABLET (FP) PO SCH ×2 (06:55→16:45)
[2021-07-18] MEDS: LEVOTHYROXINE NA 200 MCG TABLET PO SCH (06:55)
[2021-07-18] MEDS: ALBUTEROL SO4 HFA INHALER IH PRN (09:45)
[2021-07-18] MEDS: NIFEdipine E.R. 90 MG TABLET PO SCH (09:47)
[2021-07-18] MEDS: CYANOCOBALAMIN (VITAMIN B-12) 100 MCG TABLET PO SCH (09:47)
[2021-07-18] MEDS: PRENATAL VITAMINS W/ FOLIC ACID TABLET (FP) PO SCH (09:48)
[2021-07-18] MEDS: PANTOPRAZOLE 40 MG TABLET PO SCH (09:49)
[2021-07-18] MEDS: predniSONE 5 MG TABLET (UD) PO SCH (09:49)
[2021-07-18] MEDS: TIOTROPIUM BROMIDE 2.5 MCG (SPIRIVA) RESPIMAT INHALER IH SCH (09:50)
[2021-07-18] MEDS: FOLIC ACID 1 MG TABLET (FP) PO SCH (09:51)
[2021-07-18] MEDS: CHOLECALCIFEROL (VIT D3) 1,000 UNIT (25 MCG) TABLET PO SCH (09:51)
[2021-07-18] MEDS: DOCUSATE SODIUM 100 MG CAPSULE (FP) PO SCH ×2 (09:51→21:21)
[2021-07-18] MEDS: METHYL SALICYLATE/MENTHOL OINT 30 GM TUBE TP SCH ×2 (09:53→21:22)
[2021-07-18] MEDS: BUDESONIDE/FORMETEROL FUMARATE 160/4.5 mcg INHALER IH SCH ×2 (09:54→21:21)
[2021-07-18] MEDS: HYDROCHLOROTHIAZIDE 25 MG TABLET (FP) PO SCH (10:07)
[2021-07-18] MEDS: THIAMINE HCL 100 MG TABLET (FP) PO SCH (21:21)
[2021-07-18] MEDS: MONTELUKAST NA 10 MG TABLET PO SCH (21:21)
[2021-07-18] MEDS: MELATONIN 5 MG TABLETS PO SCH (21:21)
[2021-07-19] MEDS: NYSTATIN 500,000 UNITS/5 ML SUSPENSION PO SCH ×4 (00:40→18:36)
[2021-07-19] MEDS: MAG HYDROX/ALH/SMC/DPHA/LIDO 240 ML MOUTHWASH MM SCH ×4 (00:40→19:12)
[2021-07-19] MEDS ORDERED: PT OWN MED DRAWER 7, Y5N ONE ×3 (03:25→13:22)
[2021-07-19] MEDS: LEVOTHYROXINE NA 200 MCG TABLET PO SCH (06:45)
[2021-07-19] MEDS: metFORMIN HCL 500 MG TABLET (FP) PO SCH ×2 (06:45→16:59)
[2021-07-19] MEDS: ACETAMINOPHEN 325 MG TABLET (FP) PO PRN (06:49)
[2021-07-19] MEDS: hydrOXYzine PAMOATE 25 MG CAPSULE (FP) PO PRN ×3 (06:50→21:34)
[2021-07-19] MEDS: ALBUTEROL SO4 HFA INHALER IH PRN ×2 (06:52→21:33)
[2021-07-19] MEDS: PRENATAL VITAMINS W/ FOLIC ACID TABLET (FP) PO SCH (10:27)
[2021-07-19] MEDS: DOCUSATE SODIUM 100 MG CAPSULE (FP) PO SCH ×2 (10:27→21:33)
[2021-07-19] MEDS: NIFEdipine E.R. 90 MG TABLET PO SCH (10:27)
[2021-07-19] MEDS: HYDROCHLOROTHIAZIDE 25 MG TABLET (FP) PO SCH (10:27)
[2021-07-19] MEDS: CYANOCOBALAMIN (VITAMIN B-12) 100 MCG TABLET PO SCH (10:27)
[2021-07-19] MEDS: FOLIC ACID 1 MG TABLET (FP) PO SCH (10:28)
[2021-07-19] MEDS: PANTOPRAZOLE 40 MG TABLET PO SCH (10:28)
[2021-07-19] MEDS: predniSONE 5 MG TABLET (UD) PO SCH (10:28)
[2021-07-19] MEDS: CHOLECALCIFEROL (VIT D3) 1,000 UNIT (25 MCG) TABLET PO SCH (10:28)
[2021-07-19] MEDS: TIOTROPIUM BROMIDE 2.5 MCG (SPIRIVA) RESPIMAT INHALER IH SCH (10:29)
[2021-07-19] MEDS: BUDESONIDE/FORMETEROL FUMARATE 160/4.5 mcg INHALER IH SCH ×2 (10:29→21:32)
[2021-07-19] MEDS: METHYL SALICYLATE/MENTHOL OINT 30 GM TUBE TP SCH ×2 (10:30→21:40)
[2021-07-19] MEDS: IBUPROFEN 400 MG TABLET (FP) PO PRN (10:32)
[2021-07-19] MEDS: TOPIRAMATE 25 MG TABLET PO SCH (13:41)
[2021-07-19] MEDS: MONTELUKAST NA 10 MG TABLET PO SCH (21:33)
[2021-07-19] MEDS: MELATONIN 5 MG TABLETS PO SCH (21:33)
[2021-07-19] MEDS: THIAMINE HCL 100 MG TABLET (FP) PO SCH (21:33)
[2021-07-20] MEDS: IBUPROFEN 400 MG TABLET (FP) PO PRN ×2 (01:48→16:39)
[2021-07-20] MEDS: hydrOXYzine PAMOATE 25 MG CAPSULE (FP) PO PRN ×3 (01:48→20:05)
[2021-07-20] MEDS: NYSTATIN 500,000 UNITS/5 ML SUSPENSION PO SCH ×5 (01:50→23:40)
[2021-07-20] MEDS: MAG HYDROX/ALH/SMC/DPHA/LIDO 240 ML MOUTHWASH MM SCH ×5 (01:50→23:40)
[2021-07-20] MEDS: metFORMIN HCL 500 MG TABLET (FP) PO SCH ×2 (06:39→16:43)
[2021-07-20] MEDS: ALBUTEROL SO4 HFA INHALER IH PRN ×2 (06:43→21:21)
[2021-07-20] MEDS: LEVOTHYROXINE NA 100 MCG TABLET (FP) PO SCH (09:16)
[2021-07-20] MEDS: BUDESONIDE/FORMETEROL FUMARATE 160/4.5 mcg INHALER IH SCH ×2 (09:16→21:21)
[2021-07-20] MEDS: TIOTROPIUM BROMIDE 2.5 MCG (SPIRIVA) RESPIMAT INHALER IH SCH (09:16)
[2021-07-20] MEDS: PANTOPRAZOLE 40 MG TABLET PO SCH (09:17)
[2021-07-20] MEDS: HYDROCHLOROTHIAZIDE 25 MG TABLET (FP) PO SCH (09:17)
[2021-07-20] MEDS: DOCUSATE SODIUM 100 MG CAPSULE (FP) PO SCH ×2 (09:17→21:25)
[2021-07-20] MEDS: TOPIRAMATE 25 MG TABLET PO SCH (09:17)
[2021-07-20] MEDS: FOLIC ACID 1 MG TABLET (FP) PO SCH (09:17)
[2021-07-20] MEDS: CHOLECALCIFEROL (VIT D3) 1,000 UNIT (25 MCG) TABLET PO SCH (09:17)
[2021-07-20] MEDS: METHYL SALICYLATE/MENTHOL OINT 30 GM TUBE TP SCH ×2 (09:18→21:27)
[2021-07-20] MEDS: PRENATAL VITAMINS W/ FOLIC ACID TABLET (FP) PO SCH (09:19)
[2021-07-20] MEDS: LEVOTHYROXINE NA 200 MCG TABLET PO SCH (09:25)
[2021-07-20] MEDS: NIFEdipine E.R. 90 MG TABLET PO SCH (10:08)
[2021-07-20] MEDS: CYANOCOBALAMIN (VITAMIN B-12) 100 MCG TABLET PO SCH (10:08)
[2021-07-20] MEDS: THIAMINE HCL 100 MG TABLET (FP) PO SCH (21:25)
[2021-07-20] MEDS: MONTELUKAST NA 10 MG TABLET PO SCH (21:25)
[2021-07-20] MEDS: MELATONIN 5 MG TABLETS PO SCH (21:25)
[2021-07-20] MEDS: traZODone HCL 50 MG TABLET (FP) PO SCH (21:25)
[2021-07-21] MEDS: hydrOXYzine PAMOATE 25 MG CAPSULE (FP) PO PRN ×3 (00:54→18:10)
[2021-07-21] MEDS: IBUPROFEN 400 MG TABLET (FP) PO PRN ×3 (00:56→21:37)
[2021-07-21] MEDS: MAG HYDROX/ALH/SMC/DPHA/LIDO 240 ML MOUTHWASH MM SCH ×3 (07:05→18:11)
[2021-07-21] MEDS: metFORMIN HCL 500 MG TABLET (FP) PO SCH ×2 (07:07→17:04)
[2021-07-21] MEDS: NYSTATIN 500,000 UNITS/5 ML SUSPENSION PO SCH ×3 (07:07→18:11)
[2021-07-21] MEDS: LEVOTHYROXINE NA 100 MCG TABLET (FP) PO SCH (07:07)
[2021-07-21] MEDS: LEVOTHYROXINE NA 200 MCG TABLET PO SCH (07:10)
[2021-07-21] MEDS: TIOTROPIUM BROMIDE 2.5 MCG (SPIRIVA) RESPIMAT INHALER IH SCH (10:17)
[2021-07-21] MEDS: BUDESONIDE/FORMETEROL FUMARATE 160/4.5 mcg INHALER IH SCH ×2 (10:17→21:34)
[2021-07-21] MEDS: METHYL SALICYLATE/MENTHOL OINT 30 GM TUBE TP SCH ×2 (10:18→22:07)
[2021-07-21] MEDS: HYDROCHLOROTHIAZIDE 25 MG TABLET (FP) PO SCH (10:18)
[2021-07-21] MEDS: DOCUSATE SODIUM 100 MG CAPSULE (FP) PO SCH ×2 (10:18→21:34)
[2021-07-21] MEDS: FOLIC ACID 1 MG TABLET (FP) PO SCH (10:18)
[2021-07-21] MEDS: PRENATAL VITAMINS W/ FOLIC ACID TABLET (FP) PO SCH (10:19)
[2021-07-21] MEDS: PANTOPRAZOLE 40 MG TABLET PO SCH (10:19)
[2021-07-21] MEDS: NIFEdipine E.R. 90 MG TABLET PO SCH (10:20)
[2021-07-21] MEDS: CYANOCOBALAMIN (VITAMIN B-12) 100 MCG TABLET PO SCH (10:20)
[2021-07-21] MEDS: CHOLECALCIFEROL (VIT D3) 1,000 UNIT (25 MCG) TABLET PO SCH (10:22)
[2021-07-21] MEDS: TOPIRAMATE 25 MG TABLET PO SCH (10:23)
[2021-07-21] MEDS: predniSONE 5 MG TABLET (UD) PO SCH (15:05)
[2021-07-21] MEDS ORDERED: COLLOIDAL OATMEAL 1 BAR EACH TP PRN (17:56)
[2021-07-21] MEDS: MONTELUKAST NA 10 MG TABLET PO SCH (21:34)
[2021-07-21] MEDS: ALBUTEROL SO4 HFA INHALER IH PRN (21:34)
[2021-07-21] MEDS: traZODone HCL 50 MG TABLET (FP) PO SCH (21:34)
[2021-07-21] MEDS: THIAMINE HCL 100 MG TABLET (FP) PO SCH (21:34)
[2021-07-21] MEDS: MELATONIN 5 MG TABLETS PO SCH (21:35)
[2021-07-22] MEDS: NYSTATIN 500,000 UNITS/5 ML SUSPENSION PO SCH ×4 (00:14→18:26)
[2021-07-22] MEDS: MAG HYDROX/ALH/SMC/DPHA/LIDO 240 ML MOUTHWASH MM SCH ×4 (00:14→18:26)
[2021-07-22] MEDS ORDERED: TUBERCULIN PPD 5 TU/0.1ML VIAL ID ONE (06:20)
[2021-07-22] MEDS: LEVOTHYROXINE NA 100 MCG TABLET (FP) PO SCH (06:22)
[2021-07-22] MEDS: metFORMIN HCL 500 MG TABLET (FP) PO SCH ×2 (06:22→16:31)
[2021-07-22] MEDS: BUDESONIDE/FORMETEROL FUMARATE 160/4.5 mcg INHALER IH SCH (09:34)
[2021-07-22] MEDS: NIFEdipine E.R. 90 MG TABLET PO SCH (09:35)
[2021-07-22] MEDS: predniSONE 5 MG TABLET (UD) PO SCH (09:35)
[2021-07-22] MEDS: DOCUSATE SODIUM 100 MG CAPSULE (FP) PO SCH ×2 (09:35→21:06)
[2021-07-22] MEDS: CHOLECALCIFEROL (VIT D3) 1,000 UNIT (25 MCG) TABLET PO SCH (09:35)
[2021-07-22] MEDS: TOPIRAMATE 25 MG TABLET PO SCH (09:35)
[2021-07-22] MEDS: HYDROCHLOROTHIAZIDE 25 MG TABLET (FP) PO SCH (09:35)
[2021-07-22] MEDS: PANTOPRAZOLE 40 MG TABLET PO SCH (09:35)
[2021-07-22] MEDS: PRENATAL VITAMINS W/ FOLIC ACID TABLET (FP) PO SCH (09:36)
[2021-07-22] MEDS: CYANOCOBALAMIN (VITAMIN B-12) 100 MCG TABLET PO SCH (09:36)
[2021-07-22] MEDS: IBUPROFEN 400 MG TABLET (FP) PO PRN ×2 (09:40→16:30)
[2021-07-22] MEDS: FOLIC ACID 1 MG TABLET (FP) PO SCH (09:40)
[2021-07-22] MEDS: METHYL SALICYLATE/MENTHOL OINT 30 GM TUBE TP SCH ×2 (09:41→21:07)
[2021-07-22] MEDS: TIOTROPIUM BROMIDE 2.5 MCG (SPIRIVA) RESPIMAT INHALER IH SCH (09:42)
[2021-07-22] MEDS: HYDROCORTISONE 0.5% TOPICAL CREAM 30 GM TUBE TP PRN (15:48)
[2021-07-22] MEDS: hydrOXYzine PAMOATE 25 MG CAPSULE (FP) PO PRN ×2 (15:48→21:11)
[2021-07-22] MEDS: MONTELUKAST NA 10 MG TABLET PO SCH (21:06)
[2021-07-22] MEDS: THIAMINE HCL 100 MG TABLET (FP) PO SCH (21:06)
[2021-07-22] MEDS: ALBUTEROL SO4 HFA INHALER IH PRN (21:06)
[2021-07-22] MEDS: traZODone HCL 50 MG TABLET (FP) PO SCH (21:06)
[2021-07-22] MEDS: MELATONIN 5 MG TABLETS PO SCH (21:07)
[2021-07-22] MEDS: BUDESONIDE 0.5 MG/2 ML INH SUSP VIAL NEB SCH (22:22)
[2021-07-23] MEDS: IBUPROFEN 400 MG TABLET (FP) PO PRN ×2 (01:32→17:11)
[2021-07-23] MEDS: hydrOXYzine PAMOATE 25 MG CAPSULE (FP) PO PRN ×3 (01:32→17:10)
[2021-07-23] MEDS: NYSTATIN 500,000 UNITS/5 ML SUSPENSION PO SCH ×4 (01:35→17:52)
[2021-07-23] MEDS: MAG HYDROX/ALH/SMC/DPHA/LIDO 240 ML MOUTHWASH MM SCH ×4 (01:35→17:52)
[2021-07-23] MEDS: LEVOTHYROXINE NA 100 MCG TABLET (FP) PO SCH (06:56)
[2021-07-23] MEDS: metFORMIN HCL 500 MG TABLET (FP) PO SCH ×2 (06:58→17:08)
[2021-07-23] MEDS: PRENATAL VITAMINS W/ FOLIC ACID TABLET (FP) PO SCH (10:25)
[2021-07-23] MEDS: FOLIC ACID 1 MG TABLET (FP) PO SCH (10:26)
[2021-07-23] MEDS: DOCUSATE SODIUM 100 MG CAPSULE (FP) PO SCH ×2 (10:26→21:58)
[2021-07-23] MEDS: predniSONE 5 MG TABLET (UD) PO SCH (10:26)
[2021-07-23] MEDS: PANTOPRAZOLE 40 MG TABLET PO SCH (10:26)
[2021-07-23] MEDS: HYDROCHLOROTHIAZIDE 25 MG TABLET (FP) PO SCH (10:26)
[2021-07-23] MEDS: HYDROCORTISONE 0.5% TOPICAL CREAM 30 GM TUBE TP PRN ×2 (10:27→21:57)
[2021-07-23] MEDS: NIFEdipine E.R. 90 MG TABLET PO SCH (10:30)
[2021-07-23] MEDS: TIOTROPIUM BROMIDE 2.5 MCG (SPIRIVA) RESPIMAT INHALER IH SCH (10:30)
[2021-07-23] MEDS: TOPIRAMATE 25 MG TABLET PO SCH (10:30)
[2021-07-23] MEDS: CYANOCOBALAMIN (VITAMIN B-12) 100 MCG TABLET PO SCH (10:31)
[2021-07-23] MEDS: CHOLECALCIFEROL (VIT D3) 1,000 UNIT (25 MCG) TABLET PO SCH (10:31)
[2021-07-23] MEDS: BUDESONIDE 0.5 MG/2 ML INH SUSP VIAL NEB SCH ×2 (10:32→20:01)
[2021-07-23] MEDS: METHYL SALICYLATE/MENTHOL OINT 30 GM TUBE TP SCH ×2 (10:33→21:58)
[2021-07-23] MEDS: SENNOSIDES 8.6MG TABLET (FP) PO PRN (10:34)
[2021-07-23] MEDS: ALBUTEROL SO4 HFA INHALER IH PRN (10:35)
[2021-07-23] MEDS: ESCITALOPRAM OXALATE 10 MG TABLET PO SCH (13:15)
[2021-07-23] MEDS: THIAMINE HCL 100 MG TABLET (FP) PO SCH (21:58)
[2021-07-23] MEDS: MELATONIN 5 MG TABLETS PO SCH (21:58)
[2021-07-23] MEDS: MONTELUKAST NA 10 MG TABLET PO SCH (21:58)
[2021-07-23] MEDS: traZODone HCL 50 MG TABLET (FP) PO SCH (21:58)
[2021-07-24] MEDS: NYSTATIN 500,000 UNITS/5 ML SUSPENSION PO SCH ×4 (00:21→19:15)
[2021-07-24] MEDS: MAG HYDROX/ALH/SMC/DPHA/LIDO 240 ML MOUTHWASH MM SCH ×4 (00:21→19:14)
[2021-07-24] MEDS: hydrOXYzine PAMOATE 25 MG CAPSULE (FP) PO PRN ×4 (02:07→21:39)
[2021-07-24] MEDS: IBUPROFEN 400 MG TABLET (FP) PO PRN ×2 (02:07→17:04)
[2021-07-24] MEDS: ALBUTEROL SO4 HFA INHALER IH PRN (02:09)
[2021-07-24] MEDS: metFORMIN HCL 500 MG TABLET (FP) PO SCH ×2 (07:41→17:05)
[2021-07-24] MEDS: LEVOTHYROXINE NA 100 MCG TABLET (FP) PO SCH (07:42)
[2021-07-24] MEDS: BUDESONIDE 0.5 MG/2 ML INH SUSP VIAL NEB SCH ×2 (09:10→21:39)
[2021-07-24] MEDS: TIOTROPIUM BROMIDE 2.5 MCG (SPIRIVA) RESPIMAT INHALER IH SCH (10:58)
[2021-07-24] MEDS: PRENATAL VITAMINS W/ FOLIC ACID TABLET (FP) PO SCH (10:58)
[2021-07-24] MEDS: DOCUSATE SODIUM 100 MG CAPSULE (FP) PO SCH ×2 (11:00→21:39)
[2021-07-24] MEDS: HYDROCHLOROTHIAZIDE 25 MG TABLET (FP) PO SCH (11:00)
[2021-07-24] MEDS: FOLIC ACID 1 MG TABLET (FP) PO SCH (11:00)
[2021-07-24] MEDS: PANTOPRAZOLE 40 MG TABLET PO SCH (11:01)
[2021-07-24] MEDS: METHYL SALICYLATE/MENTHOL OINT 30 GM TUBE TP SCH ×2 (11:02→21:39)
[2021-07-24] MEDS: predniSONE 5 MG TABLET (UD) PO SCH (11:02)
[2021-07-24] MEDS: ESCITALOPRAM OXALATE 10 MG TABLET PO SCH (11:03)
[2021-07-24] MEDS: NIFEdipine E.R. 90 MG TABLET PO SCH (11:04)
[2021-07-24] MEDS: CHOLECALCIFEROL (VIT D3) 1,000 UNIT (25 MCG) TABLET PO SCH (11:05)
[2021-07-24] MEDS: CYANOCOBALAMIN (VITAMIN B-12) 100 MCG TABLET PO SCH (11:05)
[2021-07-24] MEDS: TOPIRAMATE 25 MG TABLET PO SCH (11:05)
[2021-07-24] MEDS: HYDROCORTISONE 0.5% TOPICAL CREAM 30 GM TUBE TP PRN (11:07)
[2021-07-24] MEDS: traZODone HCL 50 MG TABLET (FP) PO SCH (21:39)
[2021-07-24] MEDS: MONTELUKAST NA 10 MG TABLET PO SCH (21:39)
[2021-07-24] MEDS: THIAMINE HCL 100 MG TABLET (FP) PO SCH (21:40)
[2021-07-24] MEDS: MELATONIN 5 MG TABLETS PO SCH (21:40)
[2021-07-25] MEDS: NYSTATIN 500,000 UNITS/5 ML SUSPENSION PO SCH ×4 (00:10→18:29)
[2021-07-25] MEDS: MAG HYDROX/ALH/SMC/DPHA/LIDO 240 ML MOUTHWASH MM SCH ×4 (00:10→18:29)
[2021-07-25] MEDS: ALBUTEROL SO4 HFA INHALER IH PRN (05:10)
[2021-07-25] MEDS: metFORMIN HCL 500 MG TABLET (FP) PO SCH ×2 (07:43→17:16)
[2021-07-25] MEDS: LEVOTHYROXINE NA 100 MCG TABLET (FP) PO SCH (07:43)
[2021-07-25] MEDS: TIOTROPIUM BROMIDE 2.5 MCG (SPIRIVA) RESPIMAT INHALER IH SCH (10:41)
[2021-07-25] MEDS: PRENATAL VITAMINS W/ FOLIC ACID TABLET (FP) PO SCH (10:41)
[2021-07-25] MEDS: HYDROCHLOROTHIAZIDE 25 MG TABLET (FP) PO SCH (10:42)
[2021-07-25] MEDS: FOLIC ACID 1 MG TABLET (FP) PO SCH (10:42)
[2021-07-25] MEDS: PANTOPRAZOLE 40 MG TABLET PO SCH (10:42)
[2021-07-25] MEDS: ESCITALOPRAM OXALATE 10 MG TABLET PO SCH (10:42)
[2021-07-25] MEDS: METHYL SALICYLATE/MENTHOL OINT 30 GM TUBE TP SCH ×2 (10:43→22:17)
[2021-07-25] MEDS: DOCUSATE SODIUM 100 MG CAPSULE (FP) PO SCH ×2 (10:43→22:14)
[2021-07-25] MEDS: predniSONE 5 MG TABLET (UD) PO SCH (10:44)
[2021-07-25] MEDS: NIFEdipine E.R. 90 MG TABLET PO SCH (10:44)
[2021-07-25] MEDS: TOPIRAMATE 25 MG TABLET PO SCH (10:45)
[2021-07-25] MEDS: CHOLECALCIFEROL (VIT D3) 1,000 UNIT (25 MCG) TABLET PO SCH (10:45)
[2021-07-25] MEDS: CYANOCOBALAMIN (VITAMIN B-12) 100 MCG TABLET PO SCH (10:45)
[2021-07-25] MEDS: BUDESONIDE 0.5 MG/2 ML INH SUSP VIAL NEB SCH ×2 (10:46→22:12)
[2021-07-25] MEDS: IBUPROFEN 400 MG TABLET (FP) PO PRN (10:48)
[2021-07-25] MEDS: hydrOXYzine PAMOATE 25 MG CAPSULE (FP) PO PRN ×2 (10:48→17:18)
[2021-07-25] MEDS: THIAMINE HCL 100 MG TABLET (FP) PO SCH (22:14)
[2021-07-25] MEDS: MONTELUKAST NA 10 MG TABLET PO SCH (22:14)
[2021-07-25] MEDS: MELATONIN 5 MG TABLETS PO SCH (22:14)
[2021-07-25] MEDS: traZODone HCL 50 MG TABLET (FP) PO SCH (22:14)
[2021-07-26] MEDS: MAG HYDROX/ALH/SMC/DPHA/LIDO 240 ML MOUTHWASH MM SCH ×4 (00:38→17:01)
[2021-07-26] MEDS: NYSTATIN 500,000 UNITS/5 ML SUSPENSION PO SCH ×4 (00:39→17:01)
[2021-07-26] MEDS: IBUPROFEN 400 MG TABLET (FP) PO PRN (03:07)
[2021-07-26] MEDS: hydrOXYzine PAMOATE 25 MG CAPSULE (FP) PO PRN ×3 (03:07→21:44)
[2021-07-26] MEDS: metFORMIN HCL 500 MG TABLET (FP) PO SCH ×2 (06:59→17:01)
[2021-07-26] MEDS: LEVOTHYROXINE NA 100 MCG TABLET (FP) PO SCH (07:00)
[2021-07-26] MEDS: TIOTROPIUM BROMIDE 2.5 MCG (SPIRIVA) RESPIMAT INHALER IH SCH (10:46)
[2021-07-26] MEDS: HYDROCHLOROTHIAZIDE 25 MG TABLET (FP) PO SCH (10:48)
[2021-07-26] MEDS: FOLIC ACID 1 MG TABLET (FP) PO SCH (10:48)
[2021-07-26] MEDS: DOCUSATE SODIUM 100 MG CAPSULE (FP) PO SCH ×2 (10:48→21:41)
[2021-07-26] MEDS: PANTOPRAZOLE 40 MG TABLET PO SCH (10:48)
[2021-07-26] MEDS: PRENATAL VITAMINS W/ FOLIC ACID TABLET (FP) PO SCH (10:49)
[2021-07-26] MEDS: ESCITALOPRAM OXALATE 10 MG TABLET PO SCH (10:49)
[2021-07-26] MEDS: predniSONE 5 MG TABLET (UD) PO SCH (10:50)
[2021-07-26] MEDS: NIFEdipine E.R. 90 MG TABLET PO SCH (10:50)
[2021-07-26] MEDS: TOPIRAMATE 25 MG TABLET PO SCH (10:51)
[2021-07-26] MEDS: CYANOCOBALAMIN (VITAMIN B-12) 100 MCG TABLET PO SCH (10:51)
[2021-07-26] MEDS: METHYL SALICYLATE/MENTHOL OINT 30 GM TUBE TP SCH ×2 (10:52→21:41)
[2021-07-26] MEDS: CHOLECALCIFEROL (VIT D3) 1,000 UNIT (25 MCG) TABLET PO SCH (10:53)
[2021-07-26] MEDS: BUDESONIDE 0.5 MG/2 ML INH SUSP VIAL NEB SCH ×2 (20:00→20:48)
[2021-07-26] MEDS: traZODone HCL 50 MG TABLET (FP) PO SCH (21:41)
[2021-07-26] MEDS: MONTELUKAST NA 10 MG TABLET PO SCH (21:41)
[2021-07-26] MEDS: THIAMINE HCL 100 MG TABLET (FP) PO SCH (21:41)
[2021-07-26] MEDS: MELATONIN 5 MG TABLETS PO SCH (21:41)
[2021-07-27] MEDS: NYSTATIN 500,000 UNITS/5 ML SUSPENSION PO SCH ×4 (00:49→17:00)
[2021-07-27] MEDS: IBUPROFEN 400 MG TABLET (FP) PO PRN (01:20)
[2021-07-27] MEDS: hydrOXYzine PAMOATE 25 MG CAPSULE (FP) PO PRN ×3 (01:20→16:55)
[2021-07-27] MEDS: LEVOTHYROXINE NA 100 MCG TABLET (FP) PO SCH (06:45)
[2021-07-27] MEDS: MAG HYDROX/ALH/SMC/DPHA/LIDO 240 ML MOUTHWASH MM SCH ×4 (06:45→17:00)
[2021-07-27] MEDS: metFORMIN HCL 500 MG TABLET (FP) PO SCH ×2 (06:46→16:50)
[2021-07-27] MEDS: ESCITALOPRAM OXALATE 10 MG TABLET PO SCH (10:49)
[2021-07-27] MEDS: DOCUSATE SODIUM 100 MG CAPSULE (FP) PO SCH ×2 (10:49→21:27)
[2021-07-27] MEDS: PANTOPRAZOLE 40 MG TABLET PO SCH (10:49)
[2021-07-27] MEDS: PRENATAL VITAMINS W/ FOLIC ACID TABLET (FP) PO SCH (10:49)
[2021-07-27] MEDS: HYDROCHLOROTHIAZIDE 25 MG TABLET (FP) PO SCH (10:49)
[2021-07-27] MEDS: TIOTROPIUM BROMIDE 2.5 MCG (SPIRIVA) RESPIMAT INHALER IH SCH (10:50)
[2021-07-27] MEDS: predniSONE 5 MG TABLET (UD) PO SCH (10:50)
[2021-07-27] MEDS: SENNOSIDES 8.6MG TABLET (FP) PO PRN (10:51)
[2021-07-27] MEDS: CHOLECALCIFEROL (VIT D3) 1,000 UNIT (25 MCG) TABLET PO SCH (10:51)
[2021-07-27] MEDS: TOPIRAMATE 25 MG TABLET PO SCH (10:51)
[2021-07-27] MEDS: CYANOCOBALAMIN (VITAMIN B-12) 100 MCG TABLET PO SCH (10:51)
[2021-07-27] MEDS: NIFEdipine E.R. 90 MG TABLET PO SCH (10:52)
[2021-07-27] MEDS: FOLIC ACID 1 MG TABLET (FP) PO SCH (10:54)
[2021-07-27] MEDS: METHYL SALICYLATE/MENTHOL OINT 30 GM TUBE TP SCH ×2 (10:55→21:28)
[2021-07-27] MEDS: HYDROCORTISONE 0.5% TOPICAL CREAM 30 GM TUBE TP PRN (10:56)
[2021-07-27] MEDS: BUDESONIDE 0.5 MG/2 ML INH SUSP VIAL NEB SCH ×2 (12:31→20:20)
[2021-07-27] MEDS: METHOCARBAMOL 500 MG TABLET PO PRN (16:55)
[2021-07-27] MEDS: NAPROXEN 500 MG TABLET PO PRN (16:55)
[2021-07-27] MEDS: MONTELUKAST NA 10 MG TABLET PO SCH (21:27)
[2021-07-27] MEDS: traZODone HCL 50 MG TABLET (FP) PO SCH (21:27)
[2021-07-27] MEDS: THIAMINE HCL 100 MG TABLET (FP) PO SCH (21:27)
[2021-07-27] MEDS: MELATONIN 5 MG TABLETS PO SCH (21:28)
[2021-07-28] MEDS: NYSTATIN 500,000 UNITS/5 ML SUSPENSION PO SCH ×4 (01:01→18:14)
[2021-07-28] MEDS: MAG HYDROX/ALH/SMC/DPHA/LIDO 240 ML MOUTHWASH MM SCH ×4 (01:01→18:14)
[2021-07-28] MEDS ORDERED: TUBERCULIN PPD 5 TU/0.1ML VIAL ID ONE (03:21)
[2021-07-28] MEDS: metFORMIN HCL 500 MG TABLET (FP) PO SCH ×2 (07:00→17:00)
[2021-07-28] MEDS: LEVOTHYROXINE NA 100 MCG TABLET (FP) PO SCH (07:02)
[2021-07-28] MEDS: BUDESONIDE 0.5 MG/2 ML INH SUSP VIAL NEB SCH ×2 (07:02→19:50)
[2021-07-28] MEDS: PRENATAL VITAMINS W/ FOLIC ACID TABLET (FP) PO SCH (10:47)
[2021-07-28] MEDS: DOCUSATE SODIUM 100 MG CAPSULE (FP) PO SCH ×2 (10:47→21:41)
[2021-07-28] MEDS: ESCITALOPRAM OXALATE 10 MG TABLET PO SCH (10:47)
[2021-07-28] MEDS: HYDROCHLOROTHIAZIDE 25 MG TABLET (FP) PO SCH ×2 (10:48→12:03)
[2021-07-28] MEDS: NIFEdipine E.R. 90 MG TABLET PO SCH (10:48)
[2021-07-28] MEDS: NAPROXEN 500 MG TABLET PO PRN ×2 (10:48→21:40)
[2021-07-28] MEDS: PANTOPRAZOLE 40 MG TABLET PO SCH (10:48)
[2021-07-28] MEDS: METHOCARBAMOL 500 MG TABLET PO PRN ×2 (10:48→21:41)
[2021-07-28] MEDS: FOLIC ACID 1 MG TABLET (FP) PO SCH (10:48)
[2021-07-28] MEDS: predniSONE 5 MG TABLET (UD) PO SCH (10:49)
[2021-07-28] MEDS: CHOLECALCIFEROL (VIT D3) 1,000 UNIT (25 MCG) TABLET PO SCH (10:49)
[2021-07-28] MEDS: SENNOSIDES 8.6MG TABLET (FP) PO PRN (10:50)
[2021-07-28] MEDS: TIOTROPIUM BROMIDE 2.5 MCG (SPIRIVA) RESPIMAT INHALER IH SCH (10:50)
[2021-07-28] MEDS: TOPIRAMATE 25 MG TABLET PO SCH (10:50)
[2021-07-28] MEDS: CYANOCOBALAMIN (VITAMIN B-12) 100 MCG TABLET PO SCH (10:51)
[2021-07-28] MEDS: METHYL SALICYLATE/MENTHOL OINT 30 GM TUBE TP SCH ×2 (10:53→21:46)
[2021-07-28] MEDS: HYDROCORTISONE 0.5% TOPICAL CREAM 30 GM TUBE TP PRN (10:54)
[2021-07-28] MEDS: hydrOXYzine PAMOATE 25 MG CAPSULE (FP) PO PRN ×2 (12:03→21:40)
[2021-07-28] MEDS: FLUTICASONE PROP 0.05% 16 GM NASAL SPRAY NS SCH ×2 (14:55→21:40)
[2021-07-28] MEDS: MELATONIN 5 MG TABLETS PO SCH (21:40)
[2021-07-28] MEDS: traZODone HCL 100 MG TABLET (FP) PO SCH (21:40)
[2021-07-28] MEDS: MONTELUKAST NA 10 MG TABLET PO SCH (21:40)
[2021-07-28] MEDS: THIAMINE HCL 100 MG TABLET (FP) PO SCH (21:42)
[2021-07-29] MEDS: MAG HYDROX/ALH/SMC/DPHA/LIDO 240 ML MOUTHWASH MM SCH ×4 (01:10→18:22)
[2021-07-29] MEDS: NYSTATIN 500,000 UNITS/5 ML SUSPENSION PO SCH ×4 (01:10→18:21)
[2021-07-29] MEDS: hydrOXYzine PAMOATE 25 MG CAPSULE (FP) PO PRN ×2 (04:18→18:24)
[2021-07-29] MEDS: LEVOTHYROXINE NA 100 MCG TABLET (FP) PO SCH (06:41)
[2021-07-29] MEDS: metFORMIN HCL 500 MG TABLET (FP) PO SCH ×2 (06:41→16:44)
[2021-07-29] MEDS: BUDESONIDE 0.5 MG/2 ML INH SUSP VIAL NEB SCH ×2 (07:46→21:31)
[2021-07-29] MEDS: CYANOCOBALAMIN (VITAMIN B-12) 100 MCG TABLET PO SCH (10:52)
[2021-07-29] MEDS: FOLIC ACID 1 MG TABLET (FP) PO SCH (10:52)
[2021-07-29] MEDS: CHOLECALCIFEROL (VIT D3) 1,000 UNIT (25 MCG) TABLET PO SCH (10:52)
[2021-07-29] MEDS: ESCITALOPRAM OXALATE 10 MG TABLET PO SCH (10:52)
[2021-07-29] MEDS: TOPIRAMATE 25 MG TABLET PO SCH (10:52)
[2021-07-29] MEDS: PRENATAL VITAMINS W/ FOLIC ACID TABLET (FP) PO SCH (10:52)
[2021-07-29] MEDS: predniSONE 5 MG TABLET (UD) PO SCH (10:53)
[2021-07-29] MEDS: HYDROCHLOROTHIAZIDE 25 MG TABLET (FP) PO SCH (10:53)
[2021-07-29] MEDS: FLUTICASONE PROP 0.05% 16 GM NASAL SPRAY NS SCH ×2 (10:53→21:30)
[2021-07-29] MEDS: PANTOPRAZOLE 40 MG TABLET PO SCH (10:53)
[2021-07-29] MEDS: DOCUSATE SODIUM 100 MG CAPSULE (FP) PO SCH ×2 (10:53→21:30)
[2021-07-29] MEDS: NIFEdipine E.R. 90 MG TABLET PO SCH (10:54)
[2021-07-29] MEDS: TIOTROPIUM BROMIDE 2.5 MCG (SPIRIVA) RESPIMAT INHALER IH SCH (10:54)
[2021-07-29] MEDS: METHOCARBAMOL 500 MG TABLET PO PRN ×2 (10:54→21:30)
[2021-07-29] MEDS: HYDROCORTISONE 0.5% TOPICAL CREAM 30 GM TUBE TP PRN (10:56)
[2021-07-29] MEDS: NAPROXEN 500 MG TABLET PO PRN ×2 (10:57→21:30)
[2021-07-29] MEDS: METHYL SALICYLATE/MENTHOL OINT 30 GM TUBE TP SCH ×2 (10:58→21:31)
[2021-07-29] MEDS: traZODone HCL 100 MG TABLET (FP) PO SCH (21:30)
[2021-07-29] MEDS: THIAMINE HCL 100 MG TABLET (FP) PO SCH (21:30)
[2021-07-29] MEDS: MONTELUKAST NA 10 MG TABLET PO SCH (21:30)
[2021-07-29] MEDS: MELATONIN 5 MG TABLETS PO SCH (21:32)
[2021-07-30] MEDS: hydrOXYzine PAMOATE 25 MG CAPSULE (FP) PO PRN ×4 (00:08→18:11)
[2021-07-30] MEDS: NYSTATIN 500,000 UNITS/5 ML SUSPENSION PO SCH ×4 (00:08→18:12)
[2021-07-30] MEDS: MAG HYDROX/ALH/SMC/DPHA/LIDO 240 ML MOUTHWASH MM SCH ×4 (00:08→18:10)
[2021-07-30] MEDS: LEVOTHYROXINE NA 100 MCG TABLET (FP) PO SCH (06:56)
[2021-07-30] MEDS: metFORMIN HCL 500 MG TABLET (FP) PO SCH ×2 (06:58→17:02)
[2021-07-30] MEDS: BUDESONIDE 0.5 MG/2 ML INH SUSP VIAL NEB SCH ×2 (07:03→20:20)
[2021-07-30] MEDS: PRENATAL VITAMINS W/ FOLIC ACID TABLET (FP) PO SCH (10:42)
[2021-07-30] MEDS: HYDROCHLOROTHIAZIDE 25 MG TABLET (FP) PO SCH (10:43)
[2021-07-30] MEDS: DOCUSATE SODIUM 100 MG CAPSULE (FP) PO SCH ×2 (10:43→21:37)
[2021-07-30] MEDS: PANTOPRAZOLE 40 MG TABLET PO SCH (10:43)
[2021-07-30] MEDS: FOLIC ACID 1 MG TABLET (FP) PO SCH (10:43)
[2021-07-30] MEDS: ESCITALOPRAM OXALATE 10 MG TABLET PO SCH (10:43)
[2021-07-30] MEDS: predniSONE 5 MG TABLET (UD) PO SCH (10:44)
[2021-07-30] MEDS: CHOLECALCIFEROL (VIT D3) 1,000 UNIT (25 MCG) TABLET PO SCH (10:45)
[2021-07-30] MEDS: TOPIRAMATE 25 MG TABLET PO SCH (10:45)
[2021-07-30] MEDS: CYANOCOBALAMIN (VITAMIN B-12) 100 MCG TABLET PO SCH (10:45)
[2021-07-30] MEDS: TIOTROPIUM BROMIDE 2.5 MCG (SPIRIVA) RESPIMAT INHALER IH SCH (10:46)
[2021-07-30] MEDS: NIFEdipine E.R. 90 MG TABLET PO SCH (10:46)
[2021-07-30] MEDS: FLUTICASONE PROP 0.05% 16 GM NASAL SPRAY NS SCH ×2 (10:47→22:23)
[2021-07-30] MEDS: METHYL SALICYLATE/MENTHOL OINT 30 GM TUBE TP SCH ×2 (10:48→21:41)
[2021-07-30] MEDS: HYDROCORTISONE 0.5% TOPICAL CREAM 30 GM TUBE TP PRN ×2 (10:50→21:41)
[2021-07-30] MEDS: ALBUTEROL SO4 HFA INHALER IH PRN (17:00)
[2021-07-30] MEDS: NAPROXEN 500 MG TABLET PO PRN (18:11)
[2021-07-30] MEDS: METHOCARBAMOL 500 MG TABLET PO PRN (18:11)
[2021-07-30] MEDS: traZODone HCL 100 MG TABLET (FP) PO SCH (21:37)
[2021-07-30] MEDS: MONTELUKAST NA 10 MG TABLET PO SCH (21:37)
[2021-07-30] MEDS: MELATONIN 5 MG TABLETS PO SCH (21:37)
[2021-07-30] MEDS: THIAMINE HCL 100 MG TABLET (FP) PO SCH (21:37)
[2021-07-30] MEDS ORDERED: ALBUTEROL SO4 0.083% IH SOL 2.5 MG/3 ML VIAL.NEB. NEB ONE (22:18)
[2021-07-31] MEDS: MAG HYDROX/ALH/SMC/DPHA/LIDO 240 ML MOUTHWASH MM SCH ×5 (00:13→23:02)
[2021-07-31] MEDS: NYSTATIN 500,000 UNITS/5 ML SUSPENSION PO SCH ×5 (00:13→23:02)
[2021-07-31] MEDS: NAPROXEN 500 MG TABLET PO PRN ×2 (04:50→22:01)
[2021-07-31] MEDS: METHOCARBAMOL 500 MG TABLET PO PRN ×2 (04:50→15:08)
[2021-07-31] MEDS: hydrOXYzine PAMOATE 25 MG CAPSULE (FP) PO PRN ×2 (04:50→18:10)
[2021-07-31] MEDS: ALBUTEROL SO4 HFA INHALER IH PRN (04:51)
[2021-07-31] MEDS: HYDROCORTISONE 0.5% TOPICAL CREAM 30 GM TUBE TP PRN ×2 (06:43→22:03)
[2021-07-31] MEDS: LEVOTHYROXINE NA 100 MCG TABLET (FP) PO SCH (06:44)
[2021-07-31] MEDS: metFORMIN HCL 500 MG TABLET (FP) PO SCH ×2 (06:46→17:01)
[2021-07-31] MEDS: BUDESONIDE 0.5 MG/2 ML INH SUSP VIAL NEB SCH ×2 (08:36→20:15)
[2021-07-31] MEDS: PRENATAL VITAMINS W/ FOLIC ACID TABLET (FP) PO SCH (10:47)
[2021-07-31] MEDS: PANTOPRAZOLE 40 MG TABLET PO SCH (10:48)
[2021-07-31] MEDS: FOLIC ACID 1 MG TABLET (FP) PO SCH (10:48)
[2021-07-31] MEDS: HYDROCHLOROTHIAZIDE 25 MG TABLET (FP) PO SCH (10:48)
[2021-07-31] MEDS: DOCUSATE SODIUM 100 MG CAPSULE (FP) PO SCH ×2 (10:48→22:01)
[2021-07-31] MEDS: ESCITALOPRAM OXALATE 10 MG TABLET PO SCH (10:48)
[2021-07-31] MEDS: CYANOCOBALAMIN (VITAMIN B-12) 100 MCG TABLET PO SCH (10:48)
[2021-07-31] MEDS: CHOLECALCIFEROL (VIT D3) 1,000 UNIT (25 MCG) TABLET PO SCH (10:48)
[2021-07-31] MEDS: NIFEdipine E.R. 90 MG TABLET PO SCH (10:49)
[2021-07-31] MEDS: TOPIRAMATE 25 MG TABLET PO SCH (10:49)
[2021-07-31] MEDS: predniSONE 5 MG TABLET (UD) PO SCH (10:49)
[2021-07-31] MEDS: TIOTROPIUM BROMIDE 2.5 MCG (SPIRIVA) RESPIMAT INHALER IH SCH (10:49)
[2021-07-31] MEDS: FLUTICASONE PROP 0.05% 16 GM NASAL SPRAY NS SCH ×2 (10:50→22:00)
[2021-07-31] MEDS: METHYL SALICYLATE/MENTHOL OINT 30 GM TUBE TP SCH ×2 (10:50→22:00)
[2021-07-31] MEDS: MELATONIN 5 MG TABLETS PO SCH (22:01)
[2021-07-31] MEDS: traZODone HCL 100 MG TABLET (FP) PO SCH (22:01)
[2021-07-31] MEDS: THIAMINE HCL 100 MG TABLET (FP) PO SCH (22:01)
[2021-07-31] MEDS: MONTELUKAST NA 10 MG TABLET PO SCH (22:01)
[2021-08-01] MEDS: hydrOXYzine PAMOATE 25 MG CAPSULE (FP) PO PRN ×4 (02:09→21:35)
[2021-08-01] MEDS: METHOCARBAMOL 500 MG TABLET PO PRN ×2 (02:09→14:34)
[2021-08-01] MEDS: MAG HYDROX/ALH/SMC/DPHA/LIDO 240 ML MOUTHWASH MM SCH ×3 (07:10→18:05)
[2021-08-01] MEDS: metFORMIN HCL 500 MG TABLET (FP) PO SCH ×2 (07:11→16:15)
[2021-08-01] MEDS: NYSTATIN 500,000 UNITS/5 ML SUSPENSION PO SCH ×3 (07:17→18:04)
[2021-08-01] MEDS: LEVOTHYROXINE NA 100 MCG TABLET (FP) PO SCH (07:17)
[2021-08-01] MEDS: BUDESONIDE 0.5 MG/2 ML INH SUSP VIAL NEB SCH ×2 (09:00→21:34)
[2021-08-01] MEDS: predniSONE 5 MG TABLET (UD) PO SCH (10:04)
[2021-08-01] MEDS: FOLIC ACID 1 MG TABLET (FP) PO SCH (10:04)
[2021-08-01] MEDS: TOPIRAMATE 25 MG TABLET PO SCH (10:04)
[2021-08-01] MEDS: HYDROCHLOROTHIAZIDE 25 MG TABLET (FP) PO SCH (10:04)
[2021-08-01] MEDS: CHOLECALCIFEROL (VIT D3) 1,000 UNIT (25 MCG) TABLET PO SCH (10:04)
[2021-08-01] MEDS: ESCITALOPRAM OXALATE 10 MG TABLET PO SCH (10:04)
[2021-08-01] MEDS: PANTOPRAZOLE 40 MG TABLET PO SCH (10:04)
[2021-08-01] MEDS: DOCUSATE SODIUM 100 MG CAPSULE (FP) PO SCH ×2 (10:04→21:35)
[2021-08-01] MEDS: NIFEdipine E.R. 90 MG TABLET PO SCH (10:04)
[2021-08-01] MEDS: CYANOCOBALAMIN (VITAMIN B-12) 100 MCG TABLET PO SCH (10:04)
[2021-08-01] MEDS: FLUTICASONE PROP 0.05% 16 GM NASAL SPRAY NS SCH ×2 (10:06→21:34)
[2021-08-01] MEDS: HYDROCORTISONE 0.5% TOPICAL CREAM 30 GM TUBE TP PRN (10:07)
[2021-08-01] MEDS: PRENATAL VITAMINS W/ FOLIC ACID TABLET (FP) PO SCH (10:08)
[2021-08-01] MEDS: METHYL SALICYLATE/MENTHOL OINT 30 GM TUBE TP SCH ×2 (10:08→21:36)
[2021-08-01] MEDS: TIOTROPIUM BROMIDE 2.5 MCG (SPIRIVA) RESPIMAT INHALER IH SCH (10:08)
[2021-08-01] MEDS: THIAMINE HCL 100 MG TABLET (FP) PO SCH (21:35)
[2021-08-01] MEDS: NAPROXEN 500 MG TABLET PO PRN (21:35)
[2021-08-01] MEDS: MELATONIN 5 MG TABLETS PO SCH (21:35)
[2021-08-01] MEDS: traZODone HCL 100 MG TABLET (FP) PO SCH (21:35)
[2021-08-01] MEDS: MONTELUKAST NA 10 MG TABLET PO SCH (21:35)
[2021-08-02] MEDS: MAG HYDROX/ALH/SMC/DPHA/LIDO 240 ML MOUTHWASH MM SCH ×4 (00:03→19:09)
[2021-08-02] MEDS: NYSTATIN 500,000 UNITS/5 ML SUSPENSION PO SCH ×4 (00:03→19:09)
[2021-08-02] MEDS: hydrOXYzine PAMOATE 25 MG CAPSULE (FP) PO PRN ×2 (02:11→14:03)
[2021-08-02] MEDS: METHOCARBAMOL 500 MG TABLET PO PRN ×3 (02:11→21:45)
[2021-08-02] MEDS: metFORMIN HCL 500 MG TABLET (FP) PO SCH ×2 (06:57→17:21)
[2021-08-02] MEDS: LEVOTHYROXINE NA 100 MCG TABLET (FP) PO SCH (07:04)
[2021-08-02] MEDS: BUDESONIDE 0.5 MG/2 ML INH SUSP VIAL NEB SCH ×2 (07:04→21:48)
[2021-08-02] MEDS: DOCUSATE SODIUM 100 MG CAPSULE (FP) PO SCH ×2 (10:27→21:43)
[2021-08-02] MEDS: PANTOPRAZOLE 40 MG TABLET PO SCH (10:27)
[2021-08-02] MEDS: HYDROCHLOROTHIAZIDE 25 MG TABLET (FP) PO SCH (10:27)
[2021-08-02] MEDS: ESCITALOPRAM OXALATE 10 MG TABLET PO SCH (10:27)
[2021-08-02] MEDS: PRENATAL VITAMINS W/ FOLIC ACID TABLET (FP) PO SCH (10:27)
[2021-08-02] MEDS: FOLIC ACID 1 MG TABLET (FP) PO SCH (10:27)
[2021-08-02] MEDS: CYANOCOBALAMIN (VITAMIN B-12) 100 MCG TABLET PO SCH (10:28)
[2021-08-02] MEDS: CHOLECALCIFEROL (VIT D3) 1,000 UNIT (25 MCG) TABLET PO SCH (10:28)
[2021-08-02] MEDS: TOPIRAMATE 25 MG TABLET PO SCH (10:28)
[2021-08-02] MEDS: FLUTICASONE PROP 0.05% 16 GM NASAL SPRAY NS SCH ×2 (10:28→21:43)
[2021-08-02] MEDS: TIOTROPIUM BROMIDE 2.5 MCG (SPIRIVA) RESPIMAT INHALER IH SCH (10:29)
[2021-08-02] MEDS: NIFEdipine E.R. 90 MG TABLET PO SCH (10:29)
[2021-08-02] MEDS: NAPROXEN 500 MG TABLET PO PRN (10:31)
[2021-08-02] MEDS: predniSONE 5 MG TABLET (UD) PO SCH (10:32)
[2021-08-02] MEDS: HYDROCORTISONE 0.5% TOPICAL CREAM 30 GM TUBE TP PRN (10:33)
[2021-08-02] MEDS: METHYL SALICYLATE/MENTHOL OINT 30 GM TUBE TP SCH ×2 (10:34→21:49)
[2021-08-02] MEDS: MONTELUKAST NA 10 MG TABLET PO SCH (21:42)
[2021-08-02] MEDS: traZODone HCL 50 MG TABLET (FP) PO SCH (21:42)
[2021-08-02] MEDS: THIAMINE HCL 100 MG TABLET (FP) PO SCH (21:43)
[2021-08-02] MEDS: MELATONIN 5 MG TABLETS PO SCH (21:43)
[2021-08-02] MEDS: hydrOXYzine PAMOATE 50 MG CAPSULE (FP) PO PRN (21:45)
[2021-08-03] MEDS: MAG HYDROX/ALH/SMC/DPHA/LIDO 240 ML MOUTHWASH MM SCH ×5 (00:30→23:21)
[2021-08-03] MEDS: NYSTATIN 500,000 UNITS/5 ML SUSPENSION PO SCH ×5 (00:30→23:18)
[2021-08-03] MEDS: NAPROXEN 500 MG TABLET PO PRN ×2 (01:35→15:29)
[2021-08-03] MEDS: hydrOXYzine PAMOATE 50 MG CAPSULE (FP) PO PRN ×3 (03:04→21:25)
[2021-08-03] MEDS: metFORMIN HCL 500 MG TABLET (FP) PO SCH ×2 (07:06→16:47)
[2021-08-03] MEDS: LEVOTHYROXINE NA 100 MCG TABLET (FP) PO SCH (07:06)
[2021-08-03] MEDS: BUDESONIDE 0.5 MG/2 ML INH SUSP VIAL NEB SCH ×2 (07:15→22:17)
[2021-08-03] MEDS: PRENATAL VITAMINS W/ FOLIC ACID TABLET (FP) PO SCH (10:06)
[2021-08-03] MEDS: ESCITALOPRAM OXALATE 10 MG TABLET PO SCH (10:07)
[2021-08-03] MEDS: FLUTICASONE PROP 0.05% 16 GM NASAL SPRAY NS SCH ×2 (10:07→21:23)
[2021-08-03] MEDS: PANTOPRAZOLE 40 MG TABLET PO SCH (10:07)
[2021-08-03] MEDS: FOLIC ACID 1 MG TABLET (FP) PO SCH (10:07)
[2021-08-03] MEDS: DOCUSATE SODIUM 100 MG CAPSULE (FP) PO SCH ×2 (10:07→21:23)
[2021-08-03] MEDS: CYANOCOBALAMIN (VITAMIN B-12) 100 MCG TABLET PO SCH (10:08)
[2021-08-03] MEDS: predniSONE 5 MG TABLET (UD) PO SCH (10:09)
[2021-08-03] MEDS: SENNOSIDES 8.6MG TABLET (FP) PO PRN (10:09)
[2021-08-03] MEDS: CHOLECALCIFEROL (VIT D3) 1,000 UNIT (25 MCG) TABLET PO SCH (10:09)
[2021-08-03] MEDS: METHOCARBAMOL 500 MG TABLET PO PRN (10:10)
[2021-08-03] MEDS: TIOTROPIUM BROMIDE 2.5 MCG (SPIRIVA) RESPIMAT INHALER IH SCH (10:11)
[2021-08-03] MEDS: TOPIRAMATE 25 MG TABLET PO SCH (11:04)
[2021-08-03] MEDS: HYDROCORTISONE 0.5% TOPICAL CREAM 30 GM TUBE TP PRN (11:05)
[2021-08-03] MEDS: HYDROCHLOROTHIAZIDE 25 MG TABLET (FP) PO SCH (11:05)
[2021-08-03] MEDS: METHYL SALICYLATE/MENTHOL OINT 30 GM TUBE TP SCH ×2 (11:05→22:17)
[2021-08-03] MEDS: NIFEdipine E.R. 90 MG TABLET PO SCH (11:06)
[2021-08-03] MEDS: MELATONIN 5 MG TABLETS PO SCH (21:23)
[2021-08-03] MEDS: traZODone HCL 50 MG TABLET (FP) PO SCH (21:23)
[2021-08-03] MEDS: THIAMINE HCL 100 MG TABLET (FP) PO SCH (21:23)
[2021-08-03] MEDS: MONTELUKAST NA 10 MG TABLET PO SCH (21:23)
[2021-08-03] MEDS: hydrOXYzine PAMOATE 25 MG CAPSULE (FP) PO PRN (21:25)
[2021-08-04] MEDS: MAG HYDROX/ALH/SMC/DPHA/LIDO 240 ML MOUTHWASH MM SCH ×4 (07:16→23:58)
[2021-08-04] MEDS: LEVOTHYROXINE NA 100 MCG TABLET (FP) PO SCH (07:16)
[2021-08-04] MEDS: metFORMIN HCL 500 MG TABLET (FP) PO SCH ×2 (07:16→16:58)
[2021-08-04] MEDS: NYSTATIN 500,000 UNITS/5 ML SUSPENSION PO SCH ×4 (07:16→23:58)
[2021-08-04] MEDS: BUDESONIDE 0.5 MG/2 ML INH SUSP VIAL NEB SCH ×2 (07:16→21:18)
[2021-08-04] MEDS: NAPROXEN 500 MG TABLET PO PRN ×2 (07:18→22:10)
[2021-08-04] MEDS ORDERED: INSULIN (NOVOLOG) ASPART 100 UNITS/ML 10ML VIAL ONE (07:38)
[2021-08-04] MEDS: METHOCARBAMOL 500 MG TABLET PO PRN ×3 (10:00→23:51)
[2021-08-04] MEDS: NIFEdipine E.R. 90 MG TABLET PO SCH (10:06)
[2021-08-04] MEDS: CHOLECALCIFEROL (VIT D3) 1,000 UNIT (25 MCG) TABLET PO SCH (10:06)
[2021-08-04] MEDS: predniSONE 5 MG TABLET (UD) PO SCH (10:06)
[2021-08-04] MEDS: SENNOSIDES 8.6MG TABLET (FP) PO PRN (10:06)
[2021-08-04] MEDS: FOLIC ACID 1 MG TABLET (FP) PO SCH (10:06)
[2021-08-04] MEDS: PRENATAL VITAMINS W/ FOLIC ACID TABLET (FP) PO SCH (10:06)
[2021-08-04] MEDS: ESCITALOPRAM OXALATE 10 MG TABLET PO SCH (10:06)
[2021-08-04] MEDS: DOCUSATE SODIUM 100 MG CAPSULE (FP) PO SCH ×2 (10:06→21:19)
[2021-08-04] MEDS: FLUTICASONE PROP 0.05% 16 GM NASAL SPRAY NS SCH ×2 (10:06→21:20)
[2021-08-04] MEDS: TOPIRAMATE 25 MG TABLET PO SCH (10:06)
[2021-08-04] MEDS: CYANOCOBALAMIN (VITAMIN B-12) 100 MCG TABLET PO SCH (10:06)
[2021-08-04] MEDS: PANTOPRAZOLE 40 MG TABLET PO SCH (10:06)
[2021-08-04] MEDS: HYDROCHLOROTHIAZIDE 25 MG TABLET (FP) PO SCH (10:07)
[2021-08-04] MEDS: HYDROCORTISONE 0.5% TOPICAL CREAM 30 GM TUBE TP PRN ×2 (10:07→21:23)
[2021-08-04] MEDS: TIOTROPIUM BROMIDE 2.5 MCG (SPIRIVA) RESPIMAT INHALER IH SCH (10:07)
[2021-08-04] MEDS: hydrOXYzine PAMOATE 50 MG CAPSULE (FP) PO PRN ×3 (10:11→22:10)
[2021-08-04] MEDS: METHYL SALICYLATE/MENTHOL OINT 30 GM TUBE TP SCH ×2 (10:13→21:20)
[2021-08-04 20:58] VITALS: TEMP 97.3
[2021-08-04] MEDS: traZODone HCL 50 MG TABLET (FP) PO SCH (21:19)
[2021-08-04] MEDS: THIAMINE HCL 100 MG TABLET (FP) PO SCH (21:19)
[2021-08-04] MEDS: MONTELUKAST NA 10 MG TABLET PO SCH (21:20)
[2021-08-04] MEDS: MELATONIN 5 MG TABLETS PO SCH (21:20)
[2021-08-05] MEDS: hydrOXYzine PAMOATE 50 MG CAPSULE (FP) PO PRN ×2 (03:42→10:35)
[2021-08-05] MEDS: metFORMIN HCL 500 MG TABLET (FP) PO SCH (06:53)
[2021-08-05] MEDS: NYSTATIN 500,000 UNITS/5 ML SUSPENSION PO SCH (06:54)
[2021-08-05] MEDS: LEVOTHYROXINE NA 100 MCG TABLET (FP) PO SCH (06:54)
[2021-08-05] MEDS: MAG HYDROX/ALH/SMC/DPHA/LIDO 240 ML MOUTHWASH MM SCH (06:54)
[2021-08-05] MEDS: BUDESONIDE 0.5 MG/2 ML INH SUSP VIAL NEB SCH (07:47)
[2021-08-05] MEDS: ESCITALOPRAM OXALATE 10 MG TABLET PO SCH (10:29)
[2021-08-05] MEDS: CHOLECALCIFEROL (VIT D3) 1,000 UNIT (25 MCG) TABLET PO SCH (10:29)
[2021-08-05] MEDS: TOPIRAMATE 25 MG TABLET PO SCH (10:29)
[2021-08-05] MEDS: PANTOPRAZOLE 40 MG TABLET PO SCH (10:29)
[2021-08-05] MEDS: DOCUSATE SODIUM 100 MG CAPSULE (FP) PO SCH (10:29)
[2021-08-05] MEDS: PRENATAL VITAMINS W/ FOLIC ACID TABLET (FP) PO SCH (10:29)
[2021-08-05] MEDS: FOLIC ACID 1 MG TABLET (FP) PO SCH (10:29)
[2021-08-05] MEDS: CYANOCOBALAMIN (VITAMIN B-12) 100 MCG TABLET PO SCH (10:29)
[2021-08-05] MEDS: predniSONE 5 MG TABLET (UD) PO SCH (10:29)
[2021-08-05] MEDS: TIOTROPIUM BROMIDE 2.5 MCG (SPIRIVA) RESPIMAT INHALER IH SCH (10:30)
[2021-08-05] MEDS: HYDROCHLOROTHIAZIDE 25 MG TABLET (FP) PO SCH (10:30)
[2021-08-05] MEDS: FLUTICASONE PROP 0.05% 16 GM NASAL SPRAY NS SCH (10:31)
[2021-08-05] MEDS: NAPROXEN 500 MG TABLET PO PRN (10:31)
[2021-08-05] MEDS: METHYL SALICYLATE/MENTHOL OINT 30 GM TUBE TP SCH (10:31)
[2021-08-05] MEDS: HYDROCORTISONE 0.5% TOPICAL CREAM 30 GM TUBE TP PRN (10:31)
[2021-08-05] MEDS: SENNOSIDES 8.6MG TABLET (FP) PO PRN (10:31)
[2021-08-05] MEDS: NIFEdipine E.R. 90 MG TABLET PO SCH (10:33)
[2021-08-05] MEDS: METHOCARBAMOL 500 MG TABLET PO PRN (10:34)
[2021-08-05 10:42] VITALS: BP 108/56; PULSE 78
== END 2021-08-05 10:00 | disposition home or self-care (01) | DRG 895 ==
LOC: YASAS 19:31 → Y5N 21:50
PROVIDERS: ADMIT Allergy & Immunology; ATTEND Allergy & Immunology
PROC: HZ42ZZZ Group Counseling for Substance Abuse Treatment, Cognitive-Behavioral (ICD-10-PCS; principal; 2021-07-16)
DX: F10.20 Alcohol dependence, uncomplicated (principal); F14.20 Cocaine dependence, uncomplicated; F19.282 Other psychoactive substance dependence with psychoactive substance-induced sleep disorder; F19.280 Other psychoactive substance dependence with psychoactive substance-induced anxiety disorder; Z68.44 Body mass index [BMI] 60.0-69.9, adult; F12.20 Cannabis dependence, uncomplicated; F19.24 Other psychoactive substance dependence with psychoactive substance-induced mood disorder; F41.9 Anxiety disorder, unspecified; I10 Essential (primary) hypertension; E11.9 Type 2 diabetes mellitus without complications; R06.02 Shortness of breath; J45.909 Unspecified asthma, uncomplicated; G89.29 Other chronic pain; M25.562 Pain in left knee; M25.561 Pain in right knee; E03.9 Hypothyroidism, unspecified; G47.00 Insomnia, unspecified; E66.01 Morbid (severe) obesity due to excess calories; Z79.84 Long term (current) use of oral hypoglycemic drugs; Z56.0 Unemployment, unspecified; Z59.00 Homelessness unspecified
CPT/HCPCS: 82962; 94640; C9803; U0003; U0005